=== PATIENT | male | born 1935 | race Caucasian/White ===

== ENCOUNTER → 2017-04-06 | Day surgery (SDC) | payer OTHER ==
[~2017-04-06] VITALS: Ht 180.3 cm; Wt 104.0 kg
[2017-04-06] VITALS (10 sets, daily range): BP systolic 120–157; BP diastolic 49–80; PULSE 60–72; TEMP 36.4–36.5; O2SAT 94–96; Ht 180.3 cm; Wt 104.0 kg
[~2017-04-06] MED LIST: ACETAMINOPHEN 500 MG TAB PO PRN; AMIO200T4 PO; ASPI81TA28 PO; CARV25TA2 PO; FINA5TAB PO; GLC500 PO; LPT40 PO; LSN5 PO; PANT40TA PO; TERA5CAP PO
--- NOTE | 2017-04-06 09:43 | Discharge Instructions ---
Discharge Instructions Procedure Procedure Date: Apr 06, 2017. Reason for visit: Lumbar Spinal Stenosis. Discharge Discharge Date: Apr 06, 2017. Discharge Diagnosis: lumbar spinal stenosis Instructions Activity Recommendations: 1 Day-May resume regular activity Return to School/Work: no limitations Recommended Home Diet: Resume Previous Diet Allergies Coded Allergies: Codeine (Verified Allergy, Unknown, rash, 04/06/17) Tyler Vaz Recommendations: Call your doctor if: * Temperature above 101 degrees * Pain not relieved by pain medicine ordered * There is increased drainage or redness from any incision * You have any unanswered questions or concerns. Your Doctors Instructions noted above were prepared by provider Crescencio Sutton. Patient Signature Section: Patient Instructions Signature Page Kade Montalvo Patient (or Guardian) Signature/Date: I have read and understand the instructions given to me by my caregivers. Caregiver/RN/Doctor Signature/Date: The above-named patient and/or guardian has received patient instructions on this date. + Original Patient Signature Page (only) stays with chart. Please make copy for patient.
--- NOTE | 2017-04-06 10:06 | DIAGNOSTIC IMAGING REPORT ---
LUMBAR MYELOGRAM CLINICAL HISTORY: Spinal stenosis COMPARISON STUDY: Conventional radiographic study dated 03/22/2017 FINDINGS: A timeout was performed. The risks the procedure were explained the patient informed consent was obtained. The patient was prepped and draped in sterile fashion. The skin was anesthetized with 1% lidocaine. Under fluoroscopic guidance, a lumbar puncture was performed at the L5-S1 level. 12 cc of Isovue-M 200 was instilled into the thecal sac. There is marked wasting of the myelographic column at the L2-3, 3-4, L4-5, and L5-S1 level. The findings are consistent with multilevel spinal stenosis. The patient was sent to the CT suite for further imaging. IMPRESSION: Moderate to severe multilevel spinal stenosis. Electronically signed by: Crescencio Sutton M.D. 04/06/2017 10:05 AM Dictated Date/Time: 04/06/2017 10:03 AM
--- NOTE | 2017-04-06 10:13 | DIAGNOSTIC IMAGING REPORT ---
CT POST MYELOGRAM OF THE LUMBAR SPINE CT DOSE: 1251.81 mGy.cm CLINICAL HISTORY: Spinal stenosis TECHNIQUE: Following a diagnostic lumbar myelogram, CT scanning was performed. The patient was scanned in a helical fashion in the axial plane. Multiplane are referred imaging was obtained. A dose lowering technique was utilized adhering to the principles of ALARA. COMPARISON STUDY: None. FINDINGS: No abnormalities of the conus are visualized. L1-2 level: There is a calcified central disc osteophyte complex. This effaces the anterior aspect of the thecal sac. There is mild spinal canal narrowing. There is no significant foraminal narrowing L2-3 level: There is advanced disc degeneration. There is a circumferential disc bulge present. There is severe spinal stenosis with near total block of the myelographic column. L3-4 level: There is advanced disc degeneration. There is a circumferential disc bulge present. There is severe spinal stenosis with near total block of the myelographic column L4-5 level: There is advanced disc degeneration. There is a circumferential disc bulge present. There is severe spinal stenosis. L5-S1 level: There is advanced disc degeneration. There is facet joint arthropathy. There is a circumferential disc bulge present. There is severe spinal stenosis. There is partial visualization of a small infrarenal abdominal aortic aneurysm. IMPRESSION: 1. Calcified central disc osteophyte complex at the L1-2 level with effacement of the anterior thecal sac 2. Advanced disc degeneration and circumferential disc bulges with severe spinal stenosis the L2-3, L3-4, L4-5, and L5-S1 levels. 3. Partial visualization of an infrarenal abdominal aortic aneurysm Electronically signed by: Crescencio Sutton M.D. 04/06/2017 10:12 AM Dictated Date/Time: 04/06/2017 10:05 AM
== END | disposition home or self-care (01) ==
LOC: C.ACU 07:15
PROVIDERS: ATTEND Physician Assistant
DX: M48.061 Spinal stenosis, lumbar region without neurogenic claudication (principal)

== ENCOUNTER 2017-06-06 06:52 | Inpatient (IN) | payer OTHER ==
[2017-05-10 08:19] VITALS: BMI 31.0
--- NOTE | 2017-05-10 09:19 | PAT Medication Instructions ---
Service Date May 10, 2017. Current Home Medication List Amiodarone Hcl (Cordarone), 200 MG PO BID Aspirin (Aspirin Ec), 81 MG PO QAM Atorvastatin (Atorvastatin Calcium), 40 MG PO QPM Carvedilol (Coreg), 0.5 TAB PO BID Cholecalciferol (Vitamin D3), 1 CAP PO QAM Finasteride (Proscar), 5 MG PO QPM Lisinopril (Lisinopril), 5 MG PO HS Metformin HCl (Metformin HCl), 500 MG PO BID Naproxen (Aleve), 220 MG PO UD PRN for Pain Terazosin (Hytrin), 4 CAP PO HS Medication Instructions For Your Scheduled Surgery - Ask your surgeon for instructions for: Naproxen (Aleve), 220 MG PO UD PRN for Pain - Hold the following medications 24 hours prior to surgery: Lisinopril (Lisinopril), 5 MG PO HS --DO NOT TAKE THE NIGHT BEFORE SURGERY - Hold the following medications 48 hours prior to surgery: Metformin HCl (Metformin HCl), 500 MG PO BID - Hold the following medications the morning of surgery: Cholecalciferol (Vitamin D3), 1 CAP PO QAM - Take the following medications the morning of surgery with a sip of water: Carvedilol (Coreg), 0.5 TAB PO BID Aspirin (Aspirin Ec), 81 MG PO QAM Amiodarone Hcl (Cordarone), 200 MG PO BID - Take the following medications as scheduled the night before surgery: Terazosin (Hytrin), 4 CAP PO HS Finasteride (Proscar), 5 MG PO QPM Carvedilol (Coreg), 0.5 TAB PO BID Amiodarone Hcl (Cordarone), 200 MG PO BID Atorvastatin (Atorvastatin Calcium), 40 MG PO QPM If you have any questions please call us at [phone] or [phone] or [phone]
[2017-05-10 10:37] LABS: BASO % 0.4 %; BASO ABS # 0.03 K/uL (0-0.2); COMPLETE YES; EOS % 4.4 %; HEMATOCRIT 31.7 % (42-52); IG% 0.4 %; LYMPH % 13.6 %; LYMPH ABS # 1.08 K/uL (1.2-3.4); MEAN CELL VOLUME 96.1 fL (80-100); MEAN CORPUSCULAR HEMOGLOBIN 29.1 pg (25-34); MEAN CORPUSCULAR HGB CONC 30.3 g/dl (32-36); MEAN PLATELET VOLUME 10.4 fL (7.4-10.4); MONO % 13.7 %; NEUT % 67.5 %; PLATELET COUNT 220 K/uL (130-400); WHITE BLOOD COUNT 7.97 K/uL (4.8-10.8)
[2017-05-10 10:38] LABS: URINE APPEARANCE CLEAR (CLEAR); URINE BILIRUBIN NEG (NEG); URINE COLOR YELLOW; URINE NITRITE NEG (NEG); URINE PH 8.5 (4.5-7.5); URINE SPECIFIC GRAVITY 1.021 (1.000-1.030); UROBILINOGEN NEG (NEG); ZZUR CULT IF INDIC CLEAN CATCH NO
[2017-05-10 10:42] LABS: MANUAL MICROSCOPIC REQUIRED? NO; REVIEW REQ? NO
[2017-05-10 10:44] LABS: BUN/CREATININE RATIO 23.1 (10-20); CALCIUM 8.7 mg/dl (8.5-10.1); CREATININE 1.03 mg/dl (0.60-1.40); POTASSIUM 4.8 mmol/L (3.5-5.1)
[2017-06-06] VITALS (13 sets, daily range): BP systolic 93–148; BP diastolic 59–82; PULSE 60–65; TEMP 34.2–36.5; O2SAT 90–100; Ht 180.3 cm; Wt 99.0 kg
[~2017-06-06] VITALS: Ht 180.3 cm; Wt 99.0 kg
[~2017-06-06 06:52] MED LIST changes: -ACETAMINOPHEN 500 MG TAB PO PRN; +CEFAZOLIN 2000MG IV PUSH 10 ML IV SCH; +CHOL2000 PO; +LACTATED RINGER'S 1000ML 1,000 ML IV SCH; +NAPR1TAB9 PO; -PANT40TA PO
[2017-06-06] MEDS ORDERED: EpHEDrine SULFATE INJ 50 MG/ML AMP IV PRN (07:30)
[2017-06-06] MEDS ORDERED: ATROPINE SULFATE 0.1 MG/ML 5ML SYR IV PRN (07:30)
[2017-06-06] MEDS ORDERED: FENTANYL CITRATE INJ 50 MCG/1 ML 2 ML VIAL IV PRN (07:30)
[2017-06-06] MEDS ORDERED: ONDANSETRON INJ 2 MG/ML 2 ML VIAL IV PRN (07:30)
[2017-06-06] MEDS ORDERED: potassium PO (07:54)
--- NOTE | 2017-06-06 08:13 | History & Physical Bridge Note ---
H&P Re-Evaluation Bridge Note: I have examined the patient, reviewed the History & Physical and in the interval since the performance of the History & Physical I have noted the following changes of clinical significance: No changes noted
--- NOTE | 2017-06-06 08:14 | History and Physical ---
History & Physical Date Jun 06, 2017. Chief Complaint Back and bilateral leg pain History of Present Illness The patient is a 81 year old male with complaints of back and bilateral leg pain with weakness Additional History Hepatic Disease: No Endocrine Disorder: No Kidney Disease: No Hypertension: Yes Heart Disease: No Bleeding Tendencies: No Infectious Diseases: No Allergies Coded Allergies: Amoxicillin (Unverified Allergy, Unknown, diarrhea, 06/06/17) Captopril (Unverified Allergy, Unknown, possibly implicated in his pancreatitis, 06/06/17) Codeine (Verified Allergy, Unknown, rash, 06/06/17) Sulfa Antibiotics (Verified Allergy, Unknown, BLISTER ON FACE, 06/06/17) Verapamil (Unverified Allergy, Unknown, constipation, 06/06/17) Valsartan (Unverified Adverse Reaction, Unknown, lightheadedness, 06/06/17 ) Home Medications Scheduled Amiodarone Hcl (Cordarone), 200 MG PO BID Aspirin (Aspirin Ec), 81 MG PO QAM Atorvastatin (Atorvastatin Calcium), 40 MG PO QPM Carvedilol (Coreg), 0.5 TAB PO BID Cholecalciferol (Vitamin D3), 1 CAP PO QAM Finasteride (Proscar), 5 MG PO QPM Metformin HCl (Metformin HCl), 500 MG PO BID Terazosin (Hytrin), 4 CAP PO HS [potassium ], PO DAILY Scheduled PRN Naproxen (Aleve), 220 MG PO UD PRN for Pain Physical Examination Skin: warm/dry, no rash Eyes: normal inspection, EOMI, sclerae normal ENT: normal ENT inspection, pharynx normal Head: normocephalic, atraumatic Neck: supple, no adenopathy, trachea midline Respiratory/Chest: lungs clear, normal breath sounds, no respiratory distress Cardiovascular: regular rate, rhythm, no edema, no murmur Abdomen / GI: normal bowel sounds, non tender Back: normal inspection Extremities: normal inspection, normal range of motion Neurologic/Psych: no motor/sensory deficits, alert, normal reflexes, oriented x 3 Diagnosis Multilevel lumbar spinal stenosis Plan of Treatment Decompression fusion L2 to S1
[2017-06-06] MEDS ORDERED: FENTANYL CITRATE INJ 50 MCG/1 ML 2 ML VIAL ONE ×5 (08:17→12:30)
[2017-06-06] MEDS ORDERED: ALBUMIN HUMAN 5% 12.5 GM/250 ML VIAL IV ONE (08:40)
[2017-06-06] MEDS ORDERED: BUPIVACAINE/EPINEPHRINE 0.5% MPF 1:200,000 30 ML VIAL ONE (08:44)
[2017-06-06] MEDS ORDERED: BACITRACIN 50000 UNIT VIAL ONE (08:45)
[2017-06-06] MEDS ORDERED: THROMBIN FOR SOLN 20000 UNIT KIT ONE (09:09)
[2017-06-06] MEDS ORDERED: HYDROmorphone INJ 2 MG/ML SYR/VIAL ONE ×3 (09:32→12:58)
[2017-06-06] MEDS ORDERED: LIDOCAINE HCL 2% 2 ML VIAL (20MG/ML) ONE (12:20)
[2017-06-06] MEDS ORDERED: DEXAMETHASONE SOD INJ 4 MG/ML VIAL ONE (12:20)
[2017-06-06] MEDS ORDERED: ROCURONIUM BROMIDE 10 MG/ML 5 ML VIAL IV ONE (12:20)
[2017-06-06] MEDS ORDERED: PROPOFOL IV EMULSION 10 MG/ML 20 ML VIAL IV ONE (12:20)
[2017-06-06 12:22] LABS: HEMATOCRIT 30.8 % (42-52)
[2017-06-06] MEDS ORDERED: FLOSEAL HEMOSTATIC MATRIX 10ML TOP ONE (12:46)
[2017-06-06] MEDS ORDERED: SODIUM CHLORIDE 0.9% 1000ML 1,000 ML IV SCH (12:47)
--- NOTE | 2017-06-06 12:55 | [facility] Operative Report ---
Operative Report Operative Date Jun 06, 2017. Pre-Operative Diagnosis Multilevel Lumbar Spinal Stenosis Post-Operative Diagnosis Multilevel Lumbar Spinal Stenosis Procedure(s) Performed #1 lumbar decompression medial facetectomy foraminotomies L2 3 L3 4 L4 5 L5-S1. #2 posterior spinal fusion L2 3 L3 4 L4 5 L5-S1. #3 bilateral SI joint fusions. #4 placement of posterior segmental instrumentation L2 to S1 with bilateral iliac bolts. #5 interbody fusion L5-S1. #6 placement of peek cage 12 x 26 mm L5-S1. #7 placement of locally harvested morcellized autograft in the posterior lateral gutters. #8 placement infuse collagen sponge combined with Master graft in the posterior lateral gutters and ostial amp in the interbody space. Surgeon Dr. Bird Mathematical Technician Surgeon(s) Maria De Jesus Mcintyre PA-C Estimated Blood Loss 650 cc Findings Severe spinal stenosis Specimens none per surgeon Description of Procedure Patient was met with preoperatively case discussed all questions addressed. After informed consent obtained patient was taken to the operative suite underwent intubation placed in a prone position on the Matt table on top Reagan frame. All bony prominences were well-padded eyes inspected to ensure no external pressure placed upon them. This point the lumbar spines prepped and draped in sterile fashion. Sharp dissection with the assistance of Bovie cautery was performed onto an exposing the lamina and transverse processes of L2 -L3 L4-L5 sacral Dominique and bilateral SI joints. From a caudal to cephalad fashion complete laminectomy of L5 L4 L3 and L2 was performed addressing severe central lateral recess and foraminal stenosis. After this was complete pedicle screws were placed in L2 L3 L4 L5-S1 levels as well as bilateral iliac bolts. Purposes court was then contoured and placed. Through a transforaminal port and right a complete discectomy of L5-S1 was performed and plate created to subcortical bleeding bone and a 12 x 26 mm peek cage filled with ostial amp bone graft tapped in position. The rods were then locked and final position bilaterally. Cross-link was placed. Transverse processes of L2-L3 L4-L5 the sacral alar in the bilateral SI joints were burred to subcortical bleeding bone. Infuse collagen sponge mask graft locally harvested morcellized autograft was placed 15 round ABRAHAN drain inserted. Incision was then closed with 1 Vicryl fascia 2-0 Vicryl subcutaneous tediously 4 Monocryl for final skin closure Steri-Strips sterile dressings placed patient we can take PACU stable condition. Please note Maria De Jesus Payne was present at the entire procedure involved in patient positioning complex portions of the surgery and final skin closure. I attest to the content of the Intraoperative Record and any orders documented therein. Any exceptions are noted below.
--- NOTE | 2017-06-06 12:56 | DIAGNOSTIC IMAGING REPORT ---
INTRAOPERATIVE RADIOGRAPHS CLINICAL HISTORY: L2-S1 spinal fusion. Fluoroscopy time: 41 seconds. FINDINGS: 4 spot fluoroscopic views of the lumbar spine are presented. There has been discectomy at L5-S1. There are changes from laminectomy and posterior fusion from L2 to S1. Interpedicular screws are present at all levels. The orthopedic hardware appears intact. Iliac bolts are in place. IMPRESSION: Intraoperative images from L2 -S1 spinal fusion as above. Electronically signed by: Dane Marin M.D. 06/06/2017 12:54 PM Dictated Date/Time: 06/06/2017 12:53 PM
[2017-06-06] MEDS ORDERED: HYDROmorphone HCL 0.5MG/ML 50 ML CASSETTE IV PRN (13:00)
[2017-06-06] MEDS ORDERED: DC PCA PRN (13:00)
[2017-06-06] MEDS ORDERED: MAGNESIUM HYDROXIDE SUSP 30 ML UDC PO PRN (13:00)
[2017-06-06] MEDS ORDERED: BISACODYL 10 MG SUPP PR PRN (13:00)
[2017-06-06] MEDS ORDERED: ACETAMINOPHEN 500 MG TAB PO PRN (13:00)
[2017-06-06] MEDS ORDERED: DO NOT ADMINISTER PNEUMOCOCCAL VACCINE PRN ×2 (13:00)
[2017-06-06] MEDS ORDERED: LORAZEPAM 0.5 MG TAB PO PRN (13:00)
[2017-06-06] MEDS ORDERED: PROMETHAZINE HCL INJ 12.5 MG in SODIUM CHLORIDE 0.9% 50ML 50 ML IV PRN (13:00)
[2017-06-06] MEDS ORDERED: ALUMINUM/MAGNESIUM SUSP 30 ML UDC PO PRN (13:00)
[2017-06-06] MEDS ORDERED: LORAZEPAM INJ 0.5 MG in SYRINGE 0 ML IV PRN (13:00)
[2017-06-06] MEDS ORDERED: METOCLOPRAMIDE HCL INJ 5 MG/ML 2 ML VIAL IV PRN (13:00)
[2017-06-06] MEDS ORDERED: NALOXONE HCL 0.4 MG/1 ML VIAL/CARP IV PRN ×2 (13:00)
[2017-06-06] MEDS ORDERED: DO NOT ADMINISTER FLU VACCINE PRN ×3 (13:00)
[2017-06-06] MEDS ORDERED: hydrOXYzine HCL 25 MG TAB PO PRN (13:00)
[2017-06-06] MEDS ORDERED: SOD PHOSPHATE/SOD BIPHOSPHATE ENEMA 132 ML BTL PR PRN (13:00)
[2017-06-06] MEDS ORDERED: FAMOTIDINE 20 MG TAB PO PRN (13:00)
[2017-06-06] MEDS ORDERED: HYDROmorphone HCL 0.5MG/ML 50 ML CASSETTE ONE (13:25)
[2017-06-06] MEDS ORDERED: ONDANSETRON INJ 2 MG/ML 2 ML VIAL ONE ×2 (13:52→13:53)
[2017-06-06] MEDS ORDERED: CEFAZOLIN SOD 1 GM VIAL ONE (13:53)
[2017-06-06] MEDS ORDERED: EpHEDrine SULFATE 50MG/5ML SYR ONE (13:53)
[2017-06-06] MEDS ORDERED: CALCIUM CHLORIDE 10% 10 ML SYR ONE (13:53)
[2017-06-06] MEDS ORDERED: PHENYLEPHRINE 100MCG/ML 5ML SYR ONE (13:53)
[2017-06-06] MEDS ORDERED: GLYCOPYRROLATE INJ 0.2 MG/ML VIAL ONE (13:53)
[2017-06-06] MEDS ORDERED: NEOSTIGMINE METHYLSULFATE 1 MG/ML 10ML VIAL ONE (13:53)
--- NOTE | 2017-06-06 14:16 | Anesthesiology Progress Note ---
Anesthesia Post Op Note Date & Time Jun 06, 2017 at 14:16 Vital Signs Pain Intensity: 0 Vital Signs Past 12 Hours Date Time Temp Pulse Resp B/P (MAP) Pulse Ox O2 Delivery O2 Flow Rate FiO2 06/06/17 14:05 61 12 118/67 98 Nasal Cannula 4 06/06/17 13:55 36.2 60 12 122/62 99 Nasal Cannula 4 06/06/17 13:45 60 14 128/66 98 Nasal Cannula 4 06/06/17 13:35 60 13 120/66 94 Oxymask 10 06/06/17 13:25 64 14 114/69 98 Oxymask 10 06/06/17 13:17 36.7 65 12 113/60 97 Oxymask 10 06/06/17 07:55 36.5 62 18 135/70 (91) 97 Room Air Notes Mental Status: alert / awake / arousable, participated in evaluation Pt Amnestic to Procedure: Yes Nausea / Vomiting: adequately controlled Pain: adequately controlled Airway Patency, RR, SpO2: stable & adequate BP & HR: stable & adequate Hydration State: stable & adequate Anesthetic Complications: no major complications apparent
[2017-06-06] MEDS ORDERED: ZRX5 PO (15:44)
[2017-06-06] MEDS ORDERED: FURO20TA PO (15:44)
[2017-06-06] MEDS ORDERED: POTA1CAP2 PO (15:44)
[2017-06-06] MEDS ORDERED: GLUCAGON FOR INJ 1 MG VIAL SQ PRN (15:45)
[2017-06-06] MEDS ORDERED: DEXTROSE 50% 50 ML SYR IV PRN (15:45)
[2017-06-06] MEDS ORDERED: GLUCOSE 10 TABS/TUBE PO PRN (15:45)
[2017-06-06] MEDS ORDERED: GLUCOSE 40% GEL 15 GM TUBE PO PRN (15:45)
[2017-06-06] MEDS: SODIUM CHLORIDE 0.9% 1000ML 1,000 ML IV SCH ×2 (15:46→21:59)
--- NOTE | 2017-06-06 16:12 | Medical Consult ---
Consultation Date of Consultation: Jun 06, 2017. Attending Physician: Skinny Bird D.O. Reason for Consultation: Post Op Medical Management History of Present Illness 81 year old male who is s/p L2-S1 decompression today by Dr. Bird. Post operatively the patient is doing well. He is somewhat groggy but can answer my questions appropriately. He reports his pain is well controlled. He denies numbness or tingling to the BLLE. He reports mild nausea, denies abdominal pain or vomiting. He has some mild dizziness, denies lightheadedness and syncopal events. No chest pain, palpitations or shortness of breath. Martin is in place draining clear yellow urine. Past Medical/Surgical History Medical Problems: (1) BPH (benign prostatic hyperplasia) Status: Chronic (2) DM (diabetes mellitus) Status: Chronic (3) HLD (hyperlipidemia) Status: Chronic (4) HTN (hypertension) Status: Chronic (5) Nonischemic cardiomyopathy Permanent Comment: echo 01/2015 - EF 40-45%, grade I diastolic dysfunction Status: Chronic (6) Presence of combination internal cardiac defibrillator (ICD) and pacemaker Status: Chronic (7) V tach Status: Chronic Surgical Problems: (1) History of left hip replacement Status: Chronic (2) Hx of cholecystectomy Status: Chronic (3) S/P cardiac cath Permanent Comment: 08/2016 - mild, non obstructive disease Status: Chronic Family History non contributory due to patient's advanced age Social History Smoking Status: Never Smoker Alcohol Use: none Allergies Coded Allergies: Captopril (Verified Allergy, Intermediate, possibly implicated in his pancreatitis, 06/06/17) Codeine (Verified Allergy, Intermediate, rash, 06/06/17) Sulfa Antibiotics (Verified Allergy, Intermediate, BLISTER ON FACE, ) Amoxicillin (Verified Adverse Reaction, Mild, diarrhea, 06/06/17) Valsartan (Verified Adverse Reaction, Mild, lightheadedness, 06/06/17) Verapamil (Unverified Adverse Reaction, Mild, constipation, 06/06/17) Home Medications Potassium Chloride Er (Potassium Chloride) 10 Meq Cap 1 Cap PO DAILY 90 Days Lasix (Furosemide) 20 Mg Tab 20 Mg PO BID Vitamin D3 (Cholecalciferol) 2,000 Unit Cap 1 Cap PO QAM 90 Days Aleve (Naproxen) 220 Mg Tab 220 Mg PO UD PRN Cordarone (Amiodarone Hcl) 200 Mg Tab 200 Mg PO BID Proscar (Finasteride) 5 Mg Tab 5 Mg PO QPM Hytrin (Terazosin HCl) 5 Mg Cap 4 Cap PO HS Metformin HCl 500 Mg Tab 500 Mg PO BID Coreg (Carvedilol) 25 Mg Tab 0.5 Tab PO BID Atorvastatin Calcium (Atorvastatin) 40 Mg Tab 40 Mg PO QPM Aspirin Ec (Aspirin) 81 Mg Tab 81 Mg PO QAM Current Inpatient Medications Current Inpatient Medications Medications (Trade) Dose Ordered Sig/Heydi Route Start Time Stop Time Status Last Admin Dose Admin Lactated Ringer's 1,000 ml @ 15 mls/hr Q24H IV 06/06/17 06:00 06/07/17 05:59 06/06/17 06:00 15 MLS/HR Cefazolin Sodium 10 ml @ 2.5 mls/min PREOP IV 06/06/17 06:00 06/06/17 18:00 06/06/17 09:02 2.5 MLS/MIN Clindamycin Phosphate 600 mg/ Dextrose 54 ml @ 100 mls/hr Q8H IV 06/06/17 17:00 06/07/17 01:33 Promethazine HCl 12.5 mg/Sodium Chloride 50.5 ml @ 202 mls/hr Q6H PRN IV 06/06/17 13:00 07/06/17 12:59 Ondansetron HCl (Zofran Inj) 4 mg Q6H PRN IV 06/06/17 13:00 07/06/17 12:59 Metoclopramide HCl (Reglan Inj) 10 mg Q6H PRN IV 06/06/17 13:00 07/06/17 12:59 Lorazepam (Ativan Tab) 0.5 mg Q8H PRN PO 06/06/17 13:00 07/06/17 12:59 Lorazepam 0.5 mg/ Syringe 0.25 ml @ 1 mls/min Q8H PRN IV 06/06/17 13:00 07/06/17 12:59 Pneumococcal Polysaccharide Vaccine 1 ea PRN PRN N/A 06/06/17 13:00 07/06/17 12:59 Influenza Virus Vacc Triv Types A&B 1 ea PRN PRN N/A 06/06/17 13:00 07/06/17 12:59 Polyethylene (Miralax Powder Packet) 17 gm Q6 PO 06/08/17 06:00 07/08/17 05:59 Bisacodyl (Dulcolax Supp) 10 mg DAILY PRN NC 06/06/17 13:00 07/06/17 12:59 Magnesium Hydroxide (Milk Of Magnesia Susp) 30 ml DAILY PRN PO 06/06/17 13:00 07/06/17 12:59 Hydromorphone HCl (Dilaudid Inj) 0.5-1mg prn moder... Q3H PRN IV 06/07/17 06:00 06/21/17 05:59 Oxycodone HCl (Roxicodone Immediate Rel Tab) 5-10mg prn moderate to sev... Q4H PRN PO 06/07/17 06:00 06/21/17 05:59 Sodium Chloride 1,000 ml @ 150 mls/hr Q6H40M IV 06/06/17 12:47 07/06/17 12:46 06/06/17 15:46 150 MLS/HR Acetaminophen (Tylenol Tab) 1,000 mg Q8H PRN PO 06/06/17 13:00 07/06/17 12:59 Acetaminophen 100 ml @ 400 mls/hr Q8H PRN IV 06/06/17 13:00 07/06/17 12:59 Naloxone HCl (Narcan Inj) 0.1 mg Q5M PRN IV 06/06/17 13:00 07/06/17 12:59 Senna/Docusate Sodium (Senokot S Tab) 2 tab HS PO 06/06/17 21:00 07/06/17 20:59 Sodium Biphosphate/ Sodium Phosphate (Fleet Enema) 132 ml ONE PRN NC 06/06/17 13:00 07/06/17 12:59 Hydroxyzine HCl (Vistaril Tab) 25 mg Q8H PRN PO 06/06/17 13:00 07/06/17 12:59 Al Hydroxide/Mg Hydroxide (Maalox Susp) 30 ml Q6H PRN PO 06/06/17 13:00 07/06/17 12:59 Famotidine (Pepcid Tab) 20 mg Q12 PRN PO 06/06/17 13:00 07/06/17 12:59 Diphenhydramine HCl (Benadryl Cap) 25 mg Q6H PRN PO 06/06/17 13:00 07/06/17 12:59 Miscellaneous Information (Discontinue PLATEN PRESS OPERATOR) 1 ea DIRECTED PRN N/A 06/06/17 13:00 06/07/17 06:00 Naloxone HCl (Narcan Inj) 0.1 mg Q5M PRN IV 06/06/17 13:00 06/07/17 06:00 Hydromorphone HCl (Dilaudid Casket Liner) 25 mg PRN PRN IV 06/06/17 13:00 06/07/17 06:00 Sodium Chloride 1,000 ml @ 15 mls/hr Q24H IV 06/06/17 12:47 06/07/17 06:00 Amiodarone HCl (Cordarone Tab) 200 mg BID PO 06/06/17 21:00 07/06/17 20:59 Aspirin (Ecotrin Tab) 81 mg QAM PO 06/07/17 09:00 07/07/17 08:59 Atorvastatin Calcium (Lipitor Tab) 40 mg QPM PO 06/06/17 21:00 07/06/17 20:59 Carvedilol (Coreg Tab) 12.5 mg BID PO 06/06/17 21:00 07/06/17 20:59 Finasteride (Proscar Tab) 5 mg QPM PO 06/06/17 21:00 07/06/17 20:59 Terazosin HCl (Hytrin Cap) 20 mg HS PO 06/06/17 21:00 07/06/17 20:59 Insulin Aspart (novoLOG ASPART) SLIDING SCALE If C... ACHS SC 06/06/17 17:15 07/06/17 17:14 UNV Glucose (Glucose 40% Gel) 15-30 GRAMS 15 GRAMS... UD PRN PO 06/06/17 15:45 07/06/17 15:44 UNV Glucose (Glucose Chew Tab) 4-8 Tablets 4 Tabl... UD PRN PO 06/06/17 15:45 07/06/17 15:44 UNV Dextrose (Dextrose 50% 50ML Syringe) 25-50ML OF 50% DW IV FOR... UD PRN IV 06/06/17 15:45 07/06/17 15:44 UNV Glucagon (Glucagon Inj) 1 mg UD PRN SQ 06/06/17 15:45 07/06/17 15:44 UNV Review of Systems ROS per HPI, all other systems reviewed and negative Physical Exam Date Time Temp Pulse Resp B/P (MAP) Pulse Ox O2 Delivery O2 Flow Rate FiO2 06/06/17 15:38 34.7 60 16 128/79 (95) 97 Nasal Cannula 3.5 06/06/17 15:09 60 18 119/72 (88) 93 Nasal Cannula 3.5 06/06/17 14:30 36.4 62 16 148/74 (98) 98 Nasal Cannula 4.0 06/06/17 14:30 98 Nasal Cannula 4.0 06/06/17 14:15 60 13 123/65 98 Nasal Cannula 4 06/06/17 14:05 61 12 118/67 98 Nasal Cannula 4 06/06/17 13:55 36.2 60 12 122/62 99 Nasal Cannula 4 06/06/17 13:45 60 14 128/66 98 Nasal Cannula 4 06/06/17 13:35 60 13 120/66 94 Oxymask 10 06/06/17 13:25 64 14 114/69 98 Oxymask 10 06/06/17 13:17 36.7 65 12 113/60 97 Oxymask 10 06/06/17 07:55 36.5 62 18 135/70 (91) 97 Room Air Head: normocephalic, atraumatic Eyes: normal inspection, EOMI, sclerae normal ENT: hearing grossly normal, + pertinent finding (mucous membranes moist) Neck: supple, no JVD, trachea midline Respiratory/Chest: no respiratory distress, + decreased breath sounds Cardiovascular: regular rate, rhythm, normal peripheral pulses, + pertinent finding (+1 edema BLLE) Abdomen/GI: normal bowel sounds, non tender, soft, no organomegaly Back: + pertinent finding (s/p back surgery, drain in place draining bloody drainage, pedal pushes and pulls strong BL) Extremities/Musculoskelatal: normal inspection, no calf tenderness, normal capillary refill Neurologic/Psych: no motor/sensory deficits, normal mood/affect, oriented x 3, + pertinent finding (mildly lethargic, arouses easily to verbal stimuli) Skin: normal color, warm/dry Laboratory Results Last 24 Hours Test 06/06/17 07:24 06/06/17 12:12 06/06/17 14:00 Bedside Glucose 97 mg/dl 138 mg/dl Hemoglobin 10.1 g/dL Hematocrit 30.8 % Assessment & Plan S/P L2-S1 DECOMPRESSION - POD#0 - activity and wound care orders as per ortho - pain control with bowel regimen - PT/OT - monitor H/H for acute blood loss anemia and transfuse blood products PRN NON ISCHEMIC CARDIOMYOPATHY - EF 40-55% on echo 01/2015 - appears euvolemic - would resume diuretics in the morning pending renal functions - continue beta nazia V-TACH S/P AICD/PACER - continue Amiodarone DM - will check hgb a1c - hold metformin and utilize SSI while hospitalized HTN - BP controlled, continue carvedilol HLD - continue statin BPH - continue terazosin and finasteride DVT PROPHYLAXIS - TEDs/SCDs per ortho Thank you for this consultation. We will follow the patient with you during their hospital stay. You can reach a member of the [facility] Hospitalist Team 15/01 via pager @ . 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 of V-tach s/p pacer/defibrillator on amiodarone, DM2 presents for a scheduled lumbar decompression/fusion. Doing well post-operatively. Pain controlled as of now. Denies chest pain/shortness of breath. Plan is to monitor labs (H/H, electrolytes) pain control as per ortho continue amio and b-nazia restart Lasix + Aldactone in AM monitor for fluid overload due to CHF insulin sliding scale
[2017-06-06] MEDS: CLINDAMYCIN IV 600 MG in DEXTROSE 5% 50ML 50 ML IV SCH (16:38)
[2017-06-06] MEDS: INSULIN ASPART 100 UNITS/ML 3 ML PEN SC SCH ×2 (18:38→21:04)
[2017-06-06] MEDS: DOCUSATE SODIUM/SENNA 50/8.6MG TAB PO SCH (20:17)
[2017-06-06] MEDS: FINASTERIDE 5 MG TAB PO SCH (20:18)
[2017-06-06] MEDS: ATORVASTATIN 40 MG TAB PO SCH (20:18)
[2017-06-06] MEDS: CARVEDILOL 12.5 MG TAB PO SCH (20:19)
[2017-06-06] MEDS: AMIODARONE 200 MG TAB PO SCH (20:44)
[2017-06-06 22:24] LABS: BUN/CREATININE RATIO 25.2 (10-20); CALCIUM 8.3 mg/dl (8.5-10.1); CREATININE 1.27 mg/dl (0.60-1.40); MAGNESIUM 1.8 mg/dl (1.8-2.4); POTASSIUM 4.3 mmol/L (3.5-5.1)
[2017-06-06 22:35] LABS: THYROID STIMULATING HORMONE 1.81 uIu/ml (0.300-4.500)
[2017-06-06 22:37] LABS: HEMATOCRIT 27.8 % (42-52)
[2017-06-07] VITALS (17 sets, daily range): BP systolic 80–125; BP diastolic 44–75; PULSE 60–62; TEMP 36.3–36.7; O2SAT 89–100
[2017-06-07] MEDS: CLINDAMYCIN IV 600 MG in DEXTROSE 5% 50ML 50 ML IV SCH (00:54)
[2017-06-07] MEDS: SODIUM CHLORIDE 0.9% 1000ML 1,000 ML IV SCH ×2 (02:07→20:50)
[2017-06-07] MEDS ORDERED: HYDROmorphone INJ 0.5 MG/0.5 ML SYR IV PRN (06:00)
[2017-06-07 06:16] LABS: BASO % 0.1 %; BASO ABS # 0.01 K/uL (0-0.2); COMPLETE YES; HEMATOCRIT 29.6 % (42-52); IG% 0.5 %; LYMPH % 4.6 %; LYMPH ABS # 0.87 K/uL (1.2-3.4); MEAN CELL VOLUME 92.8 fL (80-100); MEAN CORPUSCULAR HEMOGLOBIN 29.8 pg (25-34); MEAN CORPUSCULAR HGB CONC 32.1 g/dl (32-36); MEAN PLATELET VOLUME 9.5 fL (7.4-10.4); MONO % 9.2 %; NEUT % 85.6 %; PLATELET COUNT 178 K/uL (130-400); RED BLOOD COUNT 3.19 M/uL (4.7-6.1); WHITE BLOOD COUNT 18.95 K/uL (4.8-10.8)
[2017-06-07 06:49] LABS: BUN/CREATININE RATIO 31.5 (10-20); CALCIUM 8.1 mg/dl (8.5-10.1); CREATININE 1.04 mg/dl (0.60-1.40); POTASSIUM 4.4 mmol/L (3.5-5.1)
[2017-06-07 07:26] LABS: ESTIMATED AVERAGE GLUCOSE 111 mg/dl; HA1C FLAG Normal (Normal)
[2017-06-07] MEDS: AMIODARONE 200 MG TAB PO SCH ×2 (08:56→21:26)
[2017-06-07] MEDS: ASPIRIN 81 MG ECTAB PO SCH (08:57)
[2017-06-07] MEDS: CARVEDILOL 12.5 MG TAB PO SCH ×2 (08:57→20:50)
[2017-06-07] MEDS: INSULIN ASPART 100 UNITS/ML 3 ML PEN SC SCH ×4 (09:00→20:37)
--- NOTE | 2017-06-07 09:03 | Progress Note ---
Progress Note Date of Service Jun 07, 2017. Progress Note Patient's back pain is controlled. He denies any leg pain at this time. Vital signs are stable. On exam he is sitting up in bed appears comfortable. His good strength testing lower extremities. Assessment status post multilevel lumbar decompression fusion per plan this time we'll initiate physical therapy today. Continue to monitor her is ABRAHAN output and hemoglobin. Again we are trying to have him discharged to rehabilitation this weekend.
[2017-06-07] MEDS ORDERED: RXC5 PO (09:08)
--- NOTE | 2017-06-07 09:08 | Discharge Instructions ---
Discharge Instructions Date of Service Jun 07, 2017. Admission Reason for Admission: Lumbar Spinal Stenosis Discharge Discharge Diagnosis / Problem: lumbar spinal stenosis Discharge Goals Goal(s): Improve function Activity Recommendations Activity Limitations: per Instructions/Follow-up section . Instructions / Follow-Up Instructions / Follow-Up ACTIVITY RECOMMENDATIONS: SELF CARE INSTRUCTIONS AFTER THORACIC/LUMBAR FUSIONS 1. You may walk to your tolerance. It is good exercise for your legs and back. Expect some back and intermittent leg aches and pains. 2. You may perform "counter-top" level activities (make a sandwich, deo with a project, etc.). 3. No bending or lifting of more than 10 pounds or back twisting of any nature (roll like a log when turning in bed). 4. You may ride in a car for 20-30 minutes at a time. No driving until after your first visit with your doctor. 5. Frequent changes of position and restricting sitting to 30 minutes at a time will help limit the amount of back spasms and stiffness you may experience. 6. You may discontinue the use of ambulatory aids (cane, crutches, etc.) once your strength and confidence allow. 7. You may processing talc and borate supervisor the shower and let water strike your incision when you arrive home at least once daily. Do not take a tub bath, sit in a hot tub or go into a swimming pool until after your first recheck in the office. SPECIAL CARE INSTRUCTIONS: VERY IMPORTANT TO READ AND REVIEW A. Your surgical incision has been closed with a cosmetic suture under the skin that will dissolve in about 6 weeks. In 14 days, you can use a pair of clean scissors and cut the suture that is left outside of the skin at the ends of your incision. 1. The small skin tapes can be removed 7 days after surgery if they have not fallen off by that point. 2. You may keep the wound open to air as much as possible to promote healing after post-op day number 5 unless told otherwise by your doctor. 3. If you think the wound looks like it is becoming infected (redness or worsening drainage) and/or you are experiencing fever, chill or worsening back pain and muscle spasms, contact the office so that we may evaluate you as soon as possible. B. Complications are uncommon, but please contact us if you have any signs or symptoms of: 1. wound infection (fever higher than 102.5 degrees F, redness, separation of wound, drainage, or increasing pain from the incision) 2. blood clots in legs (pain, swelling, redness and warmth in legs) 3. urinary tract infection (fever higher than 102.5 degrees F, burning upon urination or increased frequency of urination) 4. nerve problems (inability to walk on your toes or heels, numbness, loss of bowel or bladder control) 5. any other symptoms that concern you C. Please call the office at if you have any concerns or questions about your operation or recovery. D. No smoking! Smoking drastically decreases the chance of a solid fusion. E. Do not take any anti-inflammatory medications (Indocin, Advil, Motrin, Aspirin, Naprosyn, etc.) as these may inhibit the chance of a solid fusion. Tylenol is okay to take for pain. MANAGING PAIN AFTER SPINAL SURGERY 1. Narcotic medication is intended for short-term use and will be provided for surgical pain. Surgical pain usually lasts for a period of 4-6 weeks. Narcotic medication includes Percocet, Vicodin, Darvocet, Tylenol #3 or Lortab. 2. Longer-term pain is more appropriately treated with non-narcotic medication such as Tylenol ES. 3. Muscle spasm is not appropriately treated with narcotics. Muscle relaxers such as Soma, Flexeril or Skelaxin can be used along with Tylenol ES. 4. Remember that we all live with some "aches and pains". This is not unusual or uncommon after an injury or as we get older. a. Back pain is expected and may include muscle spasms for 4 to 6 weeks after surgery. The pain should gradually improve. If the pain worsens for no apparent reason, please contact the office. b. Intermittent leg pain may also be experienced and should not be concerned about unless it worsens for no apparent reason. If so, please contact the office. 5. We will provide appropriate medication within the normal guidelines of their prescribed use. We will also be very cautious and aware of potential abuse and extended duration of patients' medication needs. a. Pain medications are for your comfort and to assist with sleep and rest so that the tissue can heal. They are not provided in order to return to normal activity and should not be used through the day. To do so or worsening pain at night can result from ongoing tissue damage and development of tolerance to the prescribed medicine. 6. Please allow 2-3 days to process refills. Prescriptions will not be mailed but must be picked up at the office. FOLLOW UP VISIT: Keep your scheduled follow-up appointment. Any questions, please call the office at . Current Hospital Diet Patient's current hospital diet: Diabetes Type 2 Diet Discharge Diet Recommended Diet: Regular Diet Procedures Procedures Performed: #1 lumbar decompression medial facetectomy foraminotomies L2 3 L3 4 L4 5 L5-S1. #2 posterior spinal fusion L2 3 L3 4 L4 5 L5-S1. #3 bilateral SI joint fusions. #4 placement of posterior segmental instrumentation L2 to S1 with bilateral iliac bolts. #5 interbody fusion L5-S1. #6 placement of peek cage 12 x 26 mm L5-S1. #7 placement of locally harvested morcellized autograft in the posterior lateral gutters. #8 placement infuse collagen sponge combined with Master graft in the posterior lateral gutters and ostial amp in the interbody space. Pending Studies Studies pending at discharge: no Laboratory Results Hemoglobin A1c Test 06/07/17 05:54 Range/Units Estimated Average Glucose 111 mg/dl Hemoglobin A1c 5.5 4.5-5.6 % Medical Emergencies . Who to Call and When: Medical Emergencies: If at any time you feel your situation is an emergency, please call 911 immediately. . Non-Emergent Contact Non-Emergency issues call your: Primary Care Provider . "Provider Documentation" section prepared by Skinny Bird. . VTE Core Measure Inpt VTE Proph given/why not?: Yanet Barnett, SHANA's
[2017-06-07] MEDS ORDERED: NURSING VERBAL MED ORDER ONE (11:10)
--- NOTE | 2017-06-07 11:52 | Clinical Documentation Query ---
WILLIAM Rdz : CLINICAL DOCUMENTATION QUERY Patient is an 81 year old male who underwent posterior lumbosacral decompression and interbody fusion on 06/06. Intraoperative hemoglobin and hematocrit of 10.1 g/dl and 30.8%. Transfused 2 units postoperatively as ordered by hospitalist coverage and repeat values this a.m. of 9.5 g/dl and 29.6%. EBL for the procedure was 650 cc with subsequent losses of an additional 865 ml's to date. In your clinical opinion is this patient being managed for: ( ) Acute blood loss anemia ( ) Not Agree ( ) Other explanation of clinical findings (Please Explain) ( ) Unable to determine (Please Define) ( X ) Need to Discuss - repeat H/H done by sensor operator and transfused after my documentation - please send this to appriopriate physician, thank you. The medical record reflects the following clinical findings, treatment, and risk factors. Clinical Indicators: As above Treatment: Transfusion of PRBC's, serial hematology, hospitalist consultation Risk Factors: Please clarify and document your clinical opinion in the progress notes and discharge summary. Terms such as "probable", "suspected", "likely", "questionable", "possible", or "still to be ruled out" are acceptable. IF IN AGREEMENT, YOU MUST DOCUMENT ABOVE DIAGNOSTIC STATEMENT IN DAILY PROGRESS NOTES AND DISCHARGE SUMMARY. This document is not part of the patient's record. Thank You, Allen Ellis, JUDITH [phone]
[2017-06-07] MEDS: OXYCODONE HCL IR 5 MG TAB (IMMEDIATE RELEASE) PO PRN (14:53)
[2017-06-07 19:28] LABS: HEMATOCRIT 29.7 % (42-52)
--- NOTE | 2017-06-07 21:12 | Progress Note ---
Medicine Progress Note Date & Time of Visit: Jun 07, 2017 at 1200. Subjective -doing well, reports his pain is controlled -limited ambulation at this time -tolerating PO Objective Last 8 Hrs Date Time Temp Pulse Resp B/P (MAP) Pulse Ox O2 Delivery O2 Flow Rate FiO2 06/07/17 15:22 103/58 (73) 06/07/17 15:14 36.5 60 16 90/52 (65) 92 Room Air 06/07/17 11:08 36.6 60 16 108/61 (77) 97 4.0 Physical Exam: GEN: obese, in no acute distress, alert and appropriate HEENT: NC/AT, normal sclerae, MMM CARDIO: reg rate, S1/2 heard without m/g/r LUNGS: CTA bilaterally, no crackles, rales or wheezes, good diaphragmatic excursion BACK: bandage in place over wound-c/d/i ABD: soft, non-tender, non-distended, no rebound or guarding, +BS EXTREMITY: RP and DP palpable 2+ bilat, no LE swelling or edema, extremities are warm and well-perfused NEURO: CN 2-12 grossly intact, sensation intact throughout MUSC: 5/5 strength throughout, no focal deficits SKIN: warm and dry Laboratory Results: 06/07/17 05:54 Red Blood Count 3.19, Mean Corpuscular Volume 92.8, Mean Corpuscular Hemoglobin 29.8, Mean Corpuscular Hemoglobin Concent 32.1, Mean Platelet Volume 9.5, Neutrophils (%) (Auto) 85.6, Lymphocytes (%) (Auto) 4.6, Monocytes (%) (Auto) 9.2, Eosinophils (%) (Auto) 0.0, Basophils (%) (Auto) 0.1, Neutrophils # (Auto) 16.24, Lymphocytes # (Auto) 0.87, Monocytes # (Auto) 1.74, Eosinophils # (Auto) 0.00, Basophils # (Auto) 0.01 06/07/17 19:18 06/07/17 05:54 Test 05/10/17 09:35 06/06/17 21:49 06/07/17 05:54 06/07/17 20:27 Urine Color YELLOW Urine Appearance CLEAR (CLEAR) Urine pH 8.5 (4.5-7.5) Urine Specific [place] 1.021 (1.000-1.030) Urine Protein NEG (NEG) Urine Glucose (UA) NEG (NEG) Urine Ketones NEG (NEG) Urine Occult Blood NEG (NEG) Urine Nitrite NEG (NEG) Urine Bilirubin NEG (NEG) Urine Urobilinogen NEG (NEG) Urine Leukocyte Esterase NEG (NEG) Magnesium Level 1.8 mg/dl (1.8-2.4) Thyroid Stimulating Hormone (TSH) 1.810 uIu/ml (0.300-4.500) White Blood Count 18.95 K/uL (4.8-10.8) Red Blood Count 3.19 M/uL (4.7-6.1) Hemoglobin 9.5 g/dL (14.0-18.0) Hematocrit 29.6 % (42-52) Mean Corpuscular Volume 92.8 fL (80-100) Mean Corpuscular Hemoglobin 29.8 pg (25-34) Mean Corpuscular Hemoglobin Concent 32.1 g/dl (32-36) Platelet Count 178 K/uL (130-400) Mean Platelet Volume 9.5 fL (7.4-10.4) Neutrophils (%) (Auto) 85.6 % Lymphocytes (%) (Auto) 4.6 % Monocytes (%) (Auto) 9.2 % Eosinophils (%) (Auto) 0.0 % Basophils (%) (Auto) 0.1 % Neutrophils # (Auto) 16.24 K/uL (1.4-6.5) Lymphocytes # (Auto) 0.87 K/uL (1.2-3.4) Monocytes # (Auto) 1.74 K/uL (0.11-0.59) Eosinophils # (Auto) 0.00 K/uL (0-0.5) Basophils # (Auto) 0.01 K/uL (0-0.2) RDW Standard Deviation 51.2 fL (36.4-46.3) RDW Coefficient of Variation 14.8 % (11.5-14.5) Immature Granulocyte % (Auto) 0.5 % Immature Granulocyte # (Auto) 0.09 K/uL (0.00-0.02) Anion Gap 5.0 mmol/L (3-11) Est Creatinine Clear Calc Drug Dose 66.8 ml/min Estimated GFR () 77.7 Estimated GFR (Non- 67.0 BUN/Creatinine Ratio 31.5 (10-20) Estimated Average Glucose 111 mg/dl Hemoglobin A1c 5.5 % (4.5-5.6) Calcium Level 8.1 mg/dl (8.5-10.1) Bedside Glucose 103 mg/dl (70-99) Last 24 Hours Test 06/06/17 20:34 06/06/17 21:49 06/07/17 05:54 06/07/17 08:11 Bedside Glucose 170 mg/dl 136 mg/dl Hemoglobin 8.8 g/dL 9.5 g/dL Hematocrit 27.8 % 29.6 % Sodium Level 142 mmol/L 142 mmol/L Potassium Level 4.3 mmol/L 4.4 mmol/L Chloride Level 110 mmol/L 111 mmol/L Carbon Dioxide Level 27 mmol/L 26 mmol/L Anion Gap 5.0 mmol/L 5.0 mmol/L Blood Urea Nitrogen 32 mg/dl 33 mg/dl Creatinine 1.27 mg/dl 1.04 mg/dl Est Creatinine Clear Calc Drug Dose 54.7 ml/min 66.8 ml/min Estimated GFR () 61.0 77.7 Estimated GFR (Non- 52.6 67.0 BUN/Creatinine Ratio 25.2 31.5 Random Glucose 171 mg/dl 141 mg/dl Calcium Level 8.3 mg/dl 8.1 mg/dl Magnesium Level 1.8 mg/dl Thyroid Stimulating Hormone (TSH) 1.810 uIu/ml White Blood Count 18.95 K/uL Red Blood Count 3.19 M/uL Mean Corpuscular Volume 92.8 fL Mean Corpuscular Hemoglobin 29.8 pg Mean Corpuscular Hemoglobin Concent 32.1 g/dl Platelet Count 178 K/uL Mean Platelet Volume 9.5 fL Neutrophils (%) (Auto) 85.6 % Lymphocytes (%) (Auto) 4.6 % Monocytes (%) (Auto) 9.2 % Eosinophils (%) (Auto) 0.0 % Basophils (%) (Auto) 0.1 % Neutrophils # (Auto) 16.24 K/uL Lymphocytes # (Auto) 0.87 K/uL Monocytes # (Auto) 1.74 K/uL Eosinophils # (Auto) 0.00 K/uL Basophils # (Auto) 0.01 K/uL RDW Standard Deviation 51.2 fL RDW Coefficient of Variation 14.8 % Immature Granulocyte % (Auto) 0.5 % Immature Granulocyte # (Auto) 0.09 K/uL Estimated Average Glucose 111 mg/dl Hemoglobin A1c 5.5 % Test 06/07/17 11:57 06/07/17 16:56 Bedside Glucose 131 mg/dl 107 mg/dl Assessment & Plan S/P L2-S1 DECOMPRESSION - POD#1 and doing well - activity and wound care orders as per ortho - pain control with bowel regimen - PT/OT - monitor H/H for acute blood loss anemia and transfuse blood products PRN NON ISCHEMIC CARDIOMYOPATHY -euvolemic, cont BB, Lasix restarted for am. Some hypotension noted mid-day but this improved by evening. V-TACH S/P AICD/PACER - continue Amiodarone DM A1C 5.5 on metformin as outpatient, well below goal for his age. Inpatient glucose slightly elevated likely related to steroid use hailey-operatively. Would consider stopping metformin on discharge with close PCP follow-up based on this A1C value as hypoglycemia is dangerous in this age group. HTN - BP controlled, continue carvedilol HLD - continue statin BPH - continue terazosin and finasteride DVT PROPHYLAXIS - TEDs/SCDs per ortho Thank you for this consultation. We will follow the patient with you during their hospital stay. You can reach a member of the [facility] Hospitalist Team 15/01 via pager @ [phone]. Carmen Flores DO [facility] Current Inpatient Medications: Current Inpatient Medications Medications (Trade) Dose Ordered Sig/Heydi Route Start Time Stop Time Status Last Admin Dose Admin Promethazine HCl 12.5 mg/Sodium Chloride 50.5 ml @ 202 mls/hr Q6H PRN IV 06/06/17 13:00 07/06/17 12:59 Ondansetron HCl (Zofran Inj) 4 mg Q6H PRN IV 06/06/17 13:00 07/06/17 12:59 Metoclopramide HCl (Reglan Inj) 10 mg Q6H PRN IV 06/06/17 13:00 07/06/17 12:59 Lorazepam (Ativan Tab) 0.5 mg Q8H PRN PO 06/06/17 13:00 07/06/17 12:59 Lorazepam 0.5 mg/ Syringe 0.25 ml @ 1 mls/min Q8H PRN IV 06/06/17 13:00 07/06/17 12:59 Pneumococcal Polysaccharide Vaccine 1 ea PRN PRN N/A 06/06/17 13:00 07/06/17 12:59 Influenza Virus Vacc Triv Types A&B 1 ea PRN PRN N/A 06/06/17 13:00 07/06/17 12:59 Polyethylene (Miralax Powder Packet) 17 gm Q6 PO 06/08/17 06:00 07/08/17 05:59 Bisacodyl (Dulcolax Supp) 10 mg DAILY PRN CA 06/06/17 13:00 07/06/17 12:59 Magnesium Hydroxide (Milk Of Magnesia Susp) 30 ml DAILY PRN PO 06/06/17 13:00 07/06/17 12:59 Hydromorphone HCl (Dilaudid Inj) 0.5-1mg prn moder... Q3H PRN IV 06/07/17 06:00 06/21/17 05:59 Oxycodone HCl (Roxicodone Immediate Rel Tab) 5-10mg prn moderate to sev... Q4H PRN PO 06/07/17 06:00 06/21/17 05:59 06/07/17 14:53 5 MG Acetaminophen (Tylenol Tab) 1,000 mg Q8H PRN PO 06/06/17 13:00 07/06/17 12:59 06/07/17 16:10 1,000 MG Acetaminophen 100 ml @ 400 mls/hr Q8H PRN IV 06/06/17 13:00 07/06/17 12:59 Naloxone HCl (Narcan Inj) 0.1 mg Q5M PRN IV 06/06/17 13:00 07/06/17 12:59 Senna/Docusate Sodium (Senokot S Tab) 2 tab HS PO 06/06/17 21:00 07/06/17 20:59 06/06/17 20:17 2 TAB Sodium Biphosphate/ Sodium Phosphate (Fleet Enema) 132 ml ONE PRN CA 06/06/17 13:00 07/06/17 12:59 Hydroxyzine HCl (Vistaril Tab) 25 mg Q8H PRN PO 06/06/17 13:00 07/06/17 12:59 Al Hydroxide/Mg Hydroxide (Maalox Susp) 30 ml Q6H PRN PO 06/06/17 13:00 07/06/17 12:59 Famotidine (Pepcid Tab) 20 mg Q12 PRN PO 06/06/17 13:00 07/06/17 12:59 Diphenhydramine HCl (Benadryl Cap) 25 mg Q6H PRN PO 06/06/17 13:00 07/06/17 12:59 Amiodarone HCl (Cordarone Tab) 200 mg BID PO 06/06/17 21:00 07/06/17 20:59 06/07/17 08:56 200 MG Aspirin (Ecotrin Tab) 81 mg QAM PO 06/07/17 09:00 07/07/17 08:59 06/07/17 08:57 81 MG Atorvastatin Calcium (Lipitor Tab) 40 mg QPM PO 06/06/17 21:00 07/06/17 20:59 06/06/17 20:18 40 MG Carvedilol (Coreg Tab) 12.5 mg BID PO 06/06/17 21:00 07/06/17 20:59 06/07/17 08:57 12.5 MG Finasteride (Proscar Tab) 5 mg QPM PO 06/06/17 21:00 07/06/17 20:59 06/06/17 20:18 5 MG Terazosin HCl (Hytrin Cap) 20 mg HS PO 06/06/17 21:00 07/06/17 20:59 06/06/17 20:18 20 MG Insulin Aspart (novoLOG ASPART) SLIDING SCALE If C... ACHS SC 06/06/17 17:15 07/06/17 17:14 06/07/17 18:30 3 UNITS Glucose (Glucose 40% Gel) 15-30 GRAMS 15 GRAMS... UD PRN PO 06/06/17 15:45 07/06/17 15:44 Glucose (Glucose Chew Tab) 4-8 Tablets 4 Tabl... UD PRN PO 06/06/17 15:45 07/06/17 15:44 Dextrose (Dextrose 50% 50ML Syringe) 25-50ML OF 50% DW IV FOR... UD PRN IV 06/06/17 15:45 07/06/17 15:44 Glucagon (Glucagon Inj) 1 mg UD PRN SQ 06/06/17 15:45 07/06/17 15:44 Enteral Nutritional Formula (Boost Glucose Control) 1 can QAM PO 06/08/17 09:00 07/08/17 08:59
[2017-06-07] MEDS: ATORVASTATIN 40 MG TAB PO SCH (21:26)
[2017-06-07] MEDS: DOCUSATE SODIUM/SENNA 50/8.6MG TAB PO SCH (21:27)
[2017-06-07] MEDS: FINASTERIDE 5 MG TAB PO SCH (21:38)
[2017-06-08] VITALS (11 sets, daily range): BP systolic 100–140; BP diastolic 43–69; PULSE 59–86; TEMP 36.5–37.4; O2SAT 87–96
[2017-06-08 01:01] LABS: HEMATOCRIT 29.1 % (42-52); MEAN CELL VOLUME 91.8 fL (80-100); MEAN CORPUSCULAR HGB CONC 32.6 g/dl (32-36); MEAN PLATELET VOLUME 9.9 fL (7.4-10.4); PLATELET COUNT 171 K/uL (130-400); RED BLOOD COUNT 3.17 M/uL (4.7-6.1); WHITE BLOOD COUNT 13.18 K/uL (4.8-10.8)
[2017-06-08 01:26] LABS: BUN/CREATININE RATIO 31.8 (10-20); CALCIUM 7.8 mg/dl (8.5-10.1); CREATININE 1.18 mg/dl (0.60-1.40); POTASSIUM 4.6 mmol/L (3.5-5.1)
[2017-06-08 01:44] LABS: BASO % 0.1 %; BASO ABS # 0.01 K/uL (0-0.2); COMPLETE YES; EOS % 0.1 %; IG% 0.4 %; LYMPH % 5.3 %; MONO % 9.3 %; NEUT % 84.8 %
[2017-06-08] MEDS: ONDANSETRON INJ 2 MG/ML 2 ML VIAL IV PRN ×2 (05:31→14:12)
[2017-06-08] MEDS ORDERED: POLYETHYLENE (MIRALAX) 17 GM PACK PO SCH (06:00)
[2017-06-08] MEDS: ACETAMINOPHEN IV 100 ML IV PRN ×2 (06:01→14:18)
[2017-06-08] MEDS ORDERED: BISACODYL 10 MG SUPP PR STA (06:25)
[2017-06-08] MEDS: INSULIN ASPART 100 UNITS/ML 3 ML PEN SC SCH ×5 (08:00→21:00)
[2017-06-08] MEDS: CARVEDILOL 12.5 MG TAB PO SCH ×2 (08:58→21:00)
[2017-06-08] MEDS: ASPIRIN 81 MG ECTAB PO SCH (08:58)
[2017-06-08] MEDS ORDERED: FUROSEMIDE 20 MG TAB PO SCH (09:00)
[2017-06-08] MEDS: BOOST GLUCOSE CONTROL PO SCH (09:02)
[2017-06-08] MEDS: AMIODARONE 200 MG TAB PO SCH ×2 (09:24→21:25)
[2017-06-08] MEDS: SODIUM CHLORIDE 0.9% 1000ML 1,000 ML IV SCH ×2 (09:52→21:22)
[2017-06-08] MEDS ORDERED: NURSING VERBAL MED ORDER ONE (10:00)
--- NOTE | 2017-06-08 10:01 | Progress Note ---
Progress Note Date of Service Jun 08, 2017. Progress Note Patient's back pain is controlled. He describes leg weakness but states his pain is overall improved in his lower summaries. He's been struggling with some nausea this a.m. Denies any headaches. On exam he is up in bed alert and oriented. He is [place] strength testing lower extremity's. Assessment status post multilevel lumbar decompression fusion replant this time will continue physical therapy. Our plan is to discharge to rehabilitation later this weekend.
[2017-06-08] MEDS: OXYCODONE HCL IR 5 MG TAB (IMMEDIATE RELEASE) PO PRN (16:51)
--- NOTE | 2017-06-08 17:43 | Progress Note ---
Medicine Progress Note Date & Time of Visit: Jun 08, 2017 at 17:32. Subjective -somewhat tolerating PO after an episode of nausea nd vomiting this morning. -more fatigued and dizzy since getting Phenergan last night -pt also received Hytrin last night at 20mg which is double the max dose and something he seems confused about. -pt is not ambulating because of pain and dizziness. -he is satting 88% on 2L at this time and was increased to 3L with an adjustment of the nasal canula, which brought his sat to >92% -he denies coughing, fevers or chills. Objective Last 8 Hrs Date Time Temp Pulse Resp B/P (MAP) Pulse Ox O2 Delivery O2 Flow Rate FiO2 06/08/17 15:56 36.7 59 16 116/62 (80) 94 Nasal Cannula 2.0 06/08/17 14:21 36.5 91 Nasal Cannula 2.0 06/08/17 14:17 69 06/08/17 14:15 100/43 (62) 87 Room Air 06/08/17 12:53 37.4 60 14 140/64 (89) 90 Nasal Cannula 06/08/17 10:45 Room Air Physical Exam: GEN: obese, in no acute distress, alert and oriented but easily falls asleep. HEENT: NC/AT, normal sclerae, MMM CARDIO: reg rate, S1/2 heard without m/g/r LUNGS: CTA bilaterally, no crackles, rales or wheezes, good diaphragmatic excursion BACK: bandage in place over wound-c/d/i, drain in place. ABD: soft, non-tender, non-distended, no rebound or guarding, +BS EXTREMITY: RP and DP palpable 2+ bilat, no LE swelling or edema, extremities are warm and well-perfused NEURO: CN 2-12 grossly intact, sensation intact throughout MUSC: 5/5 strength throughout, no focal deficits, moves all extremities fairly easily SKIN: warm and dry and wound as above. Laboratory Results: 06/08/17 00:50 Red Blood Count 3.17, Mean Corpuscular Volume 91.8, Mean Corpuscular Hemoglobin 30.0, Mean Corpuscular Hemoglobin Concent 32.6, Mean Platelet Volume 9.9, Neutrophils (%) (Auto) 84.8, Lymphocytes (%) (Auto) 5.3, Monocytes (%) (Auto) 9.3, Eosinophils (%) (Auto) 0.1, Basophils (%) (Auto) 0.1, Neutrophils # (Auto) 11.19, Lymphocytes # (Auto) 0.70, Monocytes # (Auto) 1.22, Eosinophils # (Auto) 0.01, Basophils # (Auto) 0.01 06/08/17 00:50 Test 05/10/17 09:35 06/06/17 21:49 06/07/17 05:54 06/08/17 00:50 Urine Color YELLOW Urine Appearance CLEAR (CLEAR) Urine pH 8.5 (4.5-7.5) Urine Specific [place] 1.021 (1.000-1.030) Urine Protein NEG (NEG) Urine Glucose (UA) NEG (NEG) Urine Ketones NEG (NEG) Urine Occult Blood NEG (NEG) Urine Nitrite NEG (NEG) Urine Bilirubin NEG (NEG) Urine Urobilinogen NEG (NEG) Urine Leukocyte Esterase NEG (NEG) Magnesium Level 1.8 mg/dl (1.8-2.4) Thyroid Stimulating Hormone (TSH) 1.810 uIu/ml (0.300-4.500) Estimated Average Glucose 111 mg/dl Hemoglobin A1c 5.5 % (4.5-5.6) White Blood Count 13.18 K/uL (4.8-10.8) Red Blood Count 3.17 M/uL (4.7-6.1) Hemoglobin 9.5 g/dL (14.0-18.0) Hematocrit 29.1 % (42-52) Mean Corpuscular Volume 91.8 fL (80-100) Mean Corpuscular Hemoglobin 30.0 pg (25-34) Mean Corpuscular Hemoglobin Concent 32.6 g/dl (32-36) Platelet Count 171 K/uL (130-400) Mean Platelet Volume 9.9 fL (7.4-10.4) Neutrophils (%) (Auto) 84.8 % Lymphocytes (%) (Auto) 5.3 % Monocytes (%) (Auto) 9.3 % Eosinophils (%) (Auto) 0.1 % Basophils (%) (Auto) 0.1 % Neutrophils # (Auto) 11.19 K/uL (1.4-6.5) Lymphocytes # (Auto) 0.70 K/uL (1.2-3.4) Monocytes # (Auto) 1.22 K/uL (0.11-0.59) Eosinophils # (Auto) 0.01 K/uL (0-0.5) Basophils # (Auto) 0.01 K/uL (0-0.2) RDW Standard Deviation 50.7 fL (36.4-46.3) RDW Coefficient of Variation 14.8 % (11.5-14.5) Immature Granulocyte % (Auto) 0.4 % Immature Granulocyte # (Auto) 0.05 K/uL (0.00-0.02) Anion Gap 3.0 mmol/L (3-11) Est Creatinine Clear Calc Drug Dose 58.9 ml/min Estimated GFR () 66.7 Estimated GFR (Non- 57.5 BUN/Creatinine Ratio 31.8 (10-20) Calcium Level 7.8 mg/dl (8.5-10.1) Total Bilirubin 0.5 mg/dl (0.2-1) Direct Bilirubin 0.2 mg/dl (0-0.2) Aspartate Amino Transf (AST/SGOT) 47 U/L (15-37) Alanine Aminotransferase (ALT/SGPT) 43 U/L (12-78) Alkaline Phosphatase 63 U/L (45-117) Total Protein 5.4 gm/dl (6.4-8.2) Albumin 2.7 gm/dl (3.4-5.0) Lipase 66 U/L (73-393) Test 06/08/17 17:16 Bedside Glucose 108 mg/dl (70-99) Last 24 Hours Test 06/07/17 19:18 06/07/17 20:27 06/08/17 00:50 06/08/17 08:11 Hemoglobin 9.5 g/dL 9.5 g/dL Hematocrit 29.7 % 29.1 % Bedside Glucose 103 mg/dl 109 mg/dl White Blood Count 13.18 K/uL Red Blood Count 3.17 M/uL Mean Corpuscular Volume 91.8 fL Mean Corpuscular Hemoglobin 30.0 pg Mean Corpuscular Hemoglobin Concent 32.6 g/dl Platelet Count 171 K/uL Mean Platelet Volume 9.9 fL Neutrophils (%) (Auto) 84.8 % Lymphocytes (%) (Auto) 5.3 % Monocytes (%) (Auto) 9.3 % Eosinophils (%) (Auto) 0.1 % Basophils (%) (Auto) 0.1 % Neutrophils # (Auto) 11.19 K/uL Lymphocytes # (Auto) 0.70 K/uL Monocytes # (Auto) 1.22 K/uL Eosinophils # (Auto) 0.01 K/uL Basophils # (Auto) 0.01 K/uL RDW Standard Deviation 50.7 fL RDW Coefficient of Variation 14.8 % Immature Granulocyte % (Auto) 0.4 % Immature Granulocyte # (Auto) 0.05 K/uL Sodium Level 136 mmol/L Potassium Level 4.6 mmol/L Chloride Level 107 mmol/L Carbon Dioxide Level 26 mmol/L Anion Gap 3.0 mmol/L Blood Urea Nitrogen 38 mg/dl Creatinine 1.18 mg/dl Est Creatinine Clear Calc Drug Dose 58.9 ml/min Estimated GFR () 66.7 Estimated GFR (Non- 57.5 BUN/Creatinine Ratio 31.8 Random Glucose 105 mg/dl Calcium Level 7.8 mg/dl Total Bilirubin 0.5 mg/dl Direct Bilirubin 0.2 mg/dl Aspartate Amino Transf (AST/SGOT) 47 U/L Alanine Aminotransferase (ALT/SGPT) 43 U/L Alkaline Phosphatase 63 U/L Total Protein 5.4 gm/dl Albumin 2.7 gm/dl Lipase 66 U/L Test 06/08/17 12:00 06/08/17 17:16 Bedside Glucose 114 mg/dl 108 mg/dl Assessment & Plan S/P L2-S1 DECOMPRESSION - POD#2 - activity and wound care orders as per ortho - pain control with bowel regimen - PT/OT - monitor H/H for acute blood loss anemia and transfuse blood products PRN HYPOXIA: uncertain etiology, ?atelectasis. Lungs are clear. Ordering CXR now. Cont incentive spirometry. Lasix on hold. DIZZINESS: pt appears fatigued and reports some dizziness, has not been able to stand or ambulate. Reports one episode of vomiting this morning and some nausea last night. He received Phenergan IV, which can have sedative effects in the elderly so this was stopped along with Hytrin which can contribute to dizziness, especially at this dose. The patient appears confused about his Hytrin dose and thought it was only supposed to be 2mg. For now, will hold altogether. URINARY RETENTION: acute retention this morning requiring straight cath with 600 ml out. This was a failed void after Martin was removed this morning per protocol. Nurse was instructed that if he was found to be retaining >400cc after 8 hours, to notify the doc electronic equipment repairmen for consideration of replacing the Martin catheter with an outpatient TOV. Of note, a side effect of phenergan is dizziness and urinary retention. NON ISCHEMIC CARDIOMYOPATHY -appears euvolemic but has some hypoxia that began today. Lasix was restarted, however, the patient was placed back on IVF likely in an attempt to help with the UOP. Will obtain a CXR at this time to investigate further. For now, will hold the Lasix. Lung exam is clear and he is not coughing or febrile. He denies any weight gain or swelling that is new. He doesn't have orthopnea, but cannot lay flat because of the pain in his back. Cont Coreg V-TACH S/P AICD/PACER - continue Amiodarone DM A1C 5.5 on metformin as outpatient, well below goal for his age. Inpatient glucose slightly elevated likely related to steroid use hailey-operatively. Would consider stopping metformin on discharge with close PCP follow-up based on this A1C value as hypoglycemia is dangerous in this age group. HTN - BP controlled, continue carvedilol HLD - continue statin BPH - continue finasteride DVT PROPHYLAXIS - TEDs/SCDs per ortho Thank you for this consultation. We will follow the patient with you during their hospital stay. You can reach a member of the [facility] Hospitalist Team 15/01 via pager @ [phone]. Carmen Flores DO [facility] Current [facility]patient Medications: Current Inpatient Medications Medications (Trade) Dose Ordered Sig/Heydi Route Start Time Stop Time Status Last Admin Dose Admin Promethazine HCl 12.5 mg/Sodium Chloride 50.5 ml @ 202 mls/hr Q6H PRN IV 06/06/17 13:00 07/06/17 12:59 06/08/17 05:45 202 MLS/HR Ondansetron HCl (Zofran Inj) 4 mg Q6H PRN IV 06/06/17 13:00 07/06/17 12:59 06/08/17 14:12 4 MG Metoclopramide HCl (Reglan Inj) 10 mg Q6H PRN IV 06/06/17 13:00 07/06/17 12:59 Lorazepam (Ativan Tab) 0.5 mg Q8H PRN PO 06/06/17 13:00 07/06/17 12:59 Lorazepam 0.5 mg/ Syringe 0.25 ml @ 1 mls/min Q8H PRN IV 06/06/17 13:00 07/06/17 12:59 Pneumococcal Polysaccharide Vaccine 1 ea PRN PRN N/A 06/06/17 13:00 07/06/17 12:59 Influenza Virus Vacc Triv Types A&B 1 ea PRN PRN N/A 06/06/17 13:00 07/06/17 12:59 Bisacodyl (Dulcolax Supp) 10 mg DAILY PRN [place] 06/06/17 13:00 07/06/17 12:59 Magnesium Hydroxide (Milk Of Magnesia Susp) 30 ml DAILY PRN PO 06/06/17 13:00 07/06/17 12:59 Hydromorphone HCl (Dilaudid Inj) 0.5-1mg prn moder... Q3H PRN IV 06/07/17 06:00 06/21/17 05:59 Oxycodone HCl (Roxicodone Immediate Rel Tab) 5-10mg prn moderate to sev... Q4H PRN PO 06/07/17 06:00 06/21/17 05:59 06/08/17 16:51 5 MG Acetaminophen (Tylenol Tab) 1,000 mg Q8H PRN PO 06/06/17 13:00 07/06/17 12:59 06/07/17 16:10 1,000 MG Acetaminophen 100 ml @ 400 mls/hr Q8H PRN IV 06/06/17 13:00 07/06/17 12:59 06/08/17 14:18 400 MLS/HR Naloxone HCl (Narcan Inj) 0.1 mg Q5M PRN IV 06/06/17 13:00 07/06/17 12:59 Senna/Docusate Sodium (Senokot S Tab) 2 tab HS PO 06/06/17 21:00 07/06/17 20:59 06/07/17 21:27 2 TAB Sodium Biphosphate/ Sodium Phosphate (Fleet Enema) 132 ml ONE PRN [place] 06/06/17 13:00 07/06/17 12:59 Hydroxyzine HCl (Vistaril Tab) 25 mg Q8H PRN PO 06/06/17 13:00 07/06/17 12:59 Al Hydroxide/Mg Hydroxide (Maalox Susp) 30 ml Q6H PRN PO 06/06/17 13:00 07/06/17 12:59 Famotidine (Pepcid Tab) 20 mg Q12 PRN PO 06/06/17 13:00 07/06/17 12:59 Diphenhydramine HCl (Benadryl Cap) 25 mg Q6H PRN PO 06/06/17 13:00 07/06/17 12:59 Amiodarone HCl (Cordarone Tab) 200 mg BID PO 06/06/17 21:00 07/06/17 20:59 06/08/17 09:24 200 MG Aspirin (Ecotrin Tab) 81 mg QAM PO 06/07/17 09:00 07/07/17 08:59 06/08/17 08:58 81 MG Atorvastatin Calcium (Lipitor Tab) 40 mg QPM PO 06/06/17 21:00 07/06/17 20:59 06/07/17 21:26 40 MG Carvedilol (Coreg Tab) 12.5 mg BID PO 06/06/17 21:00 07/06/17 20:59 06/08/17 08:58 12.5 MG Finasteride (Proscar Tab) 5 mg QPM PO 06/06/17 21:00 07/06/17 20:59 06/07/17 21:38 5 MG Terazosin HCl (Hytrin Cap) 20 mg HS PO 06/06/17 21:00 07/06/17 20:59 06/07/17 21:26 20 MG Insulin Aspart (novoLOG ASPART) SLIDING SCALE If C... ACHS SC 06/06/17 17:15 07/06/17 17:14 06/08/17 13:15 5 UNITS Glucose (Glucose 40% Gel) 15-30 GRAMS 15 GRAMS... UD PRN PO 06/06/17 15:45 07/06/17 15:44 Glucose (Glucose Chew Tab) 4-8 Tablets 4 Tabl... UD PRN PO 06/06/17 15:45 07/06/17 15:44 Dextrose (Dextrose 50% 50ML Syringe) 25-50ML OF 50% DW IV FOR... UD PRN IV 06/06/17 15:45 07/06/17 15:44 Glucagon (Glucagon Inj) 1 mg UD PRN SQ 06/06/17 15:45 07/06/17 15:44 Enteral Nutritional Formula (Boost Glucose Control) 1 can QAM PO 06/08/17 09:00 07/08/17 08:59 06/08/17 09:02 1 CAN Sodium Chloride 1,000 ml @ 80 mls/hr [id number] IV 06/07/17 19:15 07/07/17 19:14 06/08/17 09:52 80 MLS/HR
--- NOTE | 2017-06-08 17:51 | DIAGNOSTIC IMAGING REPORT ---
CHEST ONE VIEW PORTABLE CLINICAL HISTORY: 81 years-old Male presenting with hypoxia post-op back surgery. TECHNIQUE: Portable upright AP view of the chest was obtained. COMPARISON: None. FINDINGS: Left subclavian implanted cardiac defibrillator with leads to the right atrium, coronary sinus, and right ventricular apex. Atherosclerosis of aortic arch. Cardiac silhouette is moderately enlarged. Overall low lung volumes. Hazy basilar predominant opacities likely with small pleural effusions. No large pneumothorax. Degenerative changes of the thoracic spine. Mild gaseous distention of the stomach. IMPRESSION: 1. Cardiomegaly with hazy basilar predominant opacities concerning for pulmonary edema with small pleural effusions. Aspiration could appear similarly. Electronically signed by: Orville Ruvalcaba M.D. 06/08/2017 5:50 PM Dictated Date/Time: 06/08/2017 5:48 PM
[2017-06-08] MEDS: FINASTERIDE 5 MG TAB PO SCH (21:22)
[2017-06-08] MEDS: DOCUSATE SODIUM/SENNA 50/8.6MG TAB PO SCH (21:22)
[2017-06-08] MEDS: ATORVASTATIN 40 MG TAB PO SCH (21:25)
[2017-06-08] MEDS ORDERED: FUROSEMIDE 20 MG TAB PO ONE (22:45)
[2017-06-08] MEDS ORDERED: ALBUT/IPRATROP 3MG/0.5MG NEB 3 ML VIAL INH PRN (22:45)
[2017-06-08] MEDS ORDERED: ALBUT/IPRATROP 3MG/0.5MG NEB 3 ML VIAL INH STA (22:49)
[2017-06-09 00:01] VITALS: PULSE 60; O2SAT 99
[2017-06-09 07:52] LABS: HEMATOCRIT 28.2 % (42-52); MEAN CELL VOLUME 93.1 fL (80-100); MEAN CORPUSCULAR HEMOGLOBIN 30.7 pg (25-34); MEAN PLATELET VOLUME 10.9 fL (7.4-10.4); PLATELET COUNT 193 K/uL (130-400); RED BLOOD COUNT 3.03 M/uL (4.7-6.1); WHITE BLOOD COUNT 9.44 K/uL (4.8-10.8)
[2017-06-09 08:00] VITALS: BP 157/70; PULSE 65; TEMP 36.6; O2SAT 94
[2017-06-09 08:30] LABS: BUN/CREATININE RATIO 26.5 (10-20); CALCIUM 8.1 mg/dl (8.5-10.1); CREATININE 1.04 mg/dl (0.60-1.40); POTASSIUM 4.1 mmol/L (3.5-5.1)
[2017-06-09] MEDS ORDERED: TRAMADOL HCL 50 MG TAB PO PRN (08:45)
[2017-06-09] MEDS: BOOST GLUCOSE CONTROL PO SCH (08:53)
[2017-06-09] MEDS: ASPIRIN 81 MG ECTAB PO SCH (08:54)
[2017-06-09] MEDS ORDERED: FUROSEMIDE 20 MG TAB PO SCH ×2 (09:00)
[2017-06-09] MEDS ORDERED: FUROSEMIDE INJ 20 MG in SYRINGE 0 ML IV SCH (09:00)
[2017-06-09] MEDS: INSULIN ASPART 100 UNITS/ML 3 ML PEN SC SCH ×4 (09:03→21:00)
--- NOTE | 2017-06-09 09:14 | Progress Note ---
Medicine Progress Note Date & Time of Visit: Jun 09, 2017 at 08:50. Subjective -lightheadedness resolved overnight but became worse in the last 30 minutes after he tried to get up. -denies swelling, chest pain, cough, fevers, chills, palpitations, headache, stroke-like symptoms -reports severe pain with attempting to get out of bed which then triggered the lightheadedness. -tolerating PO without difficulty this morning. -reports that he feels generally weak and the weakness in his hands caused him difficulties feeding himself this morning. Objective Last 8 Hrs Date Time Temp Pulse Resp B/P (MAP) Pulse Ox O2 Delivery O2 Flow Rate FiO2 06/09/17 08:00 36.6 65 20 157/70 (99) 94 Nasal Cannula 4.0 Physical Exam: GEN: obese, in no acute distress, alert and oriented HEENT: NC/AT, normal sclerae, MMM, EOMI, no nystagmus, pupils are equal and round CARDIO: reg rate, S1/2 heard without m/g/r LUNGS: coarse rhonchi, poor effort by patient, no rales or wheezes, good diaphragmatic excursion BACK: bandage in place over wound-c/d/i, drain in place. ABD: soft, non-tender, non-distended, no rebound or guarding, +BS EXTREMITY: RP and DP palpable 2+ bilat, no LE swelling or edema, extremities are warm and well-perfused. No edema in hands and feet but they do appear slightly puffy. Pt states he is at baseline. NEURO: CN 2-12 grossly intact, sensation intact throughout, finger to nose intact, speech and mentation intact MUSC: 5/5 strength throughout including finger spread and finisher screwdown strength, no focal deficits, moves all extremities fairly easily SKIN: warm and dry and wound as above. Laboratory Results: 06/09/17 07:13 06/09/17 07:13 Test 05/10/17 09:35 06/06/17 21:49 06/07/17 05:54 06/08/17 00:50 Urine Color YELLOW Urine Appearance CLEAR (CLEAR) Urine pH 8.5 (4.5-7.5) Urine Specific [place] 1.021 (1.000-1.030) Urine Protein NEG (NEG) Urine Glucose (UA) NEG (NEG) Urine Ketones NEG (NEG) Urine Occult Blood NEG (NEG) Urine Nitrite NEG (NEG) Urine Bilirubin NEG (NEG) Urine Urobilinogen NEG (NEG) Urine Leukocyte Esterase NEG (NEG) Thyroid Stimulating Hormone (TSH) 1.810 uIu/ml (0.300-4.500) Estimated Average Glucose 111 mg/dl Hemoglobin A1c 5.5 % (4.5-5.6) Immature Granulocyte % (Auto) 0.4 % White Blood Count 13.18 K/uL (4.8-10.8) Red Blood Count 3.17 M/uL (4.7-6.1) Hemoglobin 9.5 g/dL (14.0-18.0) Hematocrit 29.1 % (42-52) Mean Corpuscular Volume 91.8 fL (80-100) Mean Corpuscular Hemoglobin 30.0 pg (25-34) Mean Corpuscular Hemoglobin Concent 32.6 g/dl (32-36) Platelet Count 171 K/uL (130-400) Mean Platelet Volume 9.9 fL (7.4-10.4) Neutrophils (%) (Auto) 84.8 % Lymphocytes (%) (Auto) 5.3 % Monocytes (%) (Auto) 9.3 % Eosinophils (%) (Auto) 0.1 % Basophils (%) (Auto) 0.1 % Neutrophils # (Auto) 11.19 K/uL (1.4-6.5) Lymphocytes # (Auto) 0.70 K/uL (1.2-3.4) Monocytes # (Auto) 1.22 K/uL (0.11-0.59) Eosinophils # (Auto) 0.01 K/uL (0-0.5) Basophils # (Auto) 0.01 K/uL (0-0.2) Immature Granulocyte # (Auto) 0.05 K/uL (0.00-0.02) Total Bilirubin 0.5 mg/dl (0.2-1) Direct Bilirubin 0.2 mg/dl (0-0.2) Aspartate Amino Transf (AST/SGOT) 47 U/L (15-37) Alanine Aminotransferase (ALT/SGPT) 43 U/L (12-78) Alkaline Phosphatase 63 U/L (45-117) Total Protein 5.4 gm/dl (6.4-8.2) Albumin 2.7 gm/dl (3.4-5.0) Lipase 66 U/L (73-393) Test 06/09/17 07:13 06/09/17 08:09 Red Blood Count 3.03 M/uL (4.7-6.1) Mean Corpuscular Volume 93.1 fL (80-100) Mean Corpuscular Hemoglobin 30.7 pg (25-34) Mean Corpuscular Hemoglobin Concent 33.0 g/dl (32-36) RDW Standard Deviation 51.0 fL (36.4-46.3) RDW Coefficient of Variation 14.9 % (11.5-14.5) Mean Platelet Volume 10.9 fL (7.4-10.4) Anion Gap 5.0 mmol/L (3-11) Est Creatinine Clear Calc Drug Dose 66.8 ml/min Estimated GFR () 77.7 Estimated GFR (Non- 67.0 BUN/Creatinine Ratio 26.5 (10-20) Calcium Level 8.1 mg/dl (8.5-10.1) Magnesium Level 2.0 mg/dl (1.8-2.4) Bedside Glucose 108 mg/dl (70-99) Last 24 Hours Test 06/08/17 12:00 06/08/17 17:16 06/08/17 20:44 06/09/17 07:13 Bedside Glucose 114 mg/dl 108 mg/dl 109 mg/dl White Blood Count 9.44 K/uL Red Blood Count 3.03 M/uL Hemoglobin 9.3 g/dL Hematocrit 28.2 % Mean Corpuscular Volume 93.1 fL Mean Corpuscular Hemoglobin 30.7 pg Mean Corpuscular Hemoglobin Concent 33.0 g/dl RDW Standard Deviation 51.0 fL RDW Coefficient of Variation 14.9 % Platelet Count 193 K/uL Mean Platelet Volume 10.9 fL Sodium Level 139 mmol/L Potassium Level 4.1 mmol/L Chloride Level 109 mmol/L Carbon Dioxide Level 25 mmol/L Anion Gap 5.0 mmol/L Blood Urea Nitrogen 28 mg/dl Creatinine 1.04 mg/dl Est Creatinine Clear Calc Drug Dose 66.8 ml/min Estimated GFR () 77.7 Estimated GFR (Non- 67.0 BUN/Creatinine Ratio 26.5 Random Glucose 91 mg/dl Calcium Level 8.1 mg/dl Magnesium Level 2.0 mg/dl Test 06/09/17 08:09 Bedside Glucose 108 mg/dl Assessment & Plan S/P L2-S1 DECOMPRESSION - POD#3 - activity and wound care orders as per ortho - pain control with bowel regimen - PT/OT - monitor H/H for acute blood loss anemia and transfuse blood products PRN HYPOXIA: poss 2/2 volume overload with 5L IVF plus two units of blood in the last 3 days vs atelectasis. coarse rhonchi on exam but exam is limited as patient very weak and not following instructions well. CXR last night revealed some volume overload. IVF were stopped and one dose of PO Lasix was given. Increased hypoxia this morning. Switching Lasix to IV now. Cont incentive spirometer. Added 2gm salt restriction to diet. NON ISCHEMIC CARDIOMYOPATHY-plan as above. Cont medical management with Coreg DIZZINESS: intermittent, resolved last night but came on again when he attempted ambulation this morning. Poss related to anemia, but numbers do not appear low this morning. Most offending agents have been stopped. Oxycodone held and will give scheduled Tylenol punctuated by Tramadol PRN breakthrough pain. Normal neuro exam today with the exception of the patient not standing. No nystagmus on exam. Mentating clearly without any focal deficits. I am less concerned about a central process at this time and do not think head imaging needed. Will attempt to get orthostatic vital signs. URINARY RETENTION: resolved. ANEMIA: post-op blood loss, s/p 2 Units of blood this admission. V-TACH S/P AICD/PACER -asymptomatic -baseline EKG this am -continue Amiodarone DM A1C 5.5 on metformin as outpatient, well below goal for his age. Inpatient glucose slightly elevated likely related to steroid use hailey-operatively. Would consider stopping metformin on discharge with close PCP follow-up based on this A1C value as hypoglycemia is dangerous in this age group. HTN - BP controlled, continue carvedilol HLD - continue statin BPH - continue finasteride -Hytrin held in light of dizziness DVT PROPHYLAXIS - TEDs/SCDs per ortho Thank you for this consultation. We will follow the patient with you during their hospital stay. You can reach a member of the [place] Hospitalist Team 15/01 via pager @ [phone]. Carmen Flores DO [facility]ist Current Inpatient Medications: Current Inpatient Medications Medications (Trade) Dose Ordered Sig/Heydi Route Start Time Stop Time Status Last Admin Dose Admin Ondansetron HCl (Zofran Inj) 4 mg Q6H PRN IV 06/06/17 13:00 07/06/17 12:59 06/08/17 14:12 4 MG Pneumococcal Polysaccharide Vaccine 1 ea PRN PRN N/A 06/06/17 13:00 07/06/17 12:59 Influenza Virus Vacc Triv Types A&B 1 ea PRN PRN N/A 06/06/17 13:00 07/06/17 12:59 Bisacodyl (Dulcolax Supp) 10 mg DAILY PRN [place] 06/06/17 13:00 07/06/17 12:59 Magnesium Hydroxide (Milk Of Magnesia Susp) 30 ml DAILY PRN PO 06/06/17 13:00 07/06/17 12:59 Hydromorphone HCl (Dilaudid Inj) 0.5-1mg prn moder... Q3H PRN IV 06/07/17 06:00 06/21/17 05:59 Oxycodone HCl (Roxicodone Immediate Rel Tab) 5-10mg prn moderate to sev... Q4H PRN PO 06/07/17 06:00 06/21/17 05:59 06/08/17 16:51 5 MG Naloxone HCl (Narcan Inj) 0.1 mg Q5M PRN IV 06/06/17 13:00 07/06/17 12:59 Senna/Docusate Sodium (Senokot S Tab) 2 tab HS PO 06/06/17 21:00 07/06/17 20:59 06/08/17 21:22 2 TAB Sodium Biphosphate/ Sodium Phosphate (Fleet Enema) 132 ml ONE PRN [place] 06/06/17 13:00 07/06/17 12:59 Hydroxyzine HCl (Vistaril Tab) 25 mg Q8H PRN PO 06/06/17 13:00 07/06/17 12:59 Future Hold Al Hydroxide/Mg Hydroxide (Maalox Susp) 30 ml Q6H PRN PO 06/06/17 13:00 07/06/17 12:59 Famotidine (Pepcid Tab) 20 mg Q12 PRN PO 06/06/17 13:00 07/06/17 12:59 Diphenhydramine HCl (Benadryl Cap) 25 mg Q6H PRN PO 06/06/17 13:00 07/06/17 12:59 Future Hold Amiodarone HCl (Cordarone Tab) 200 mg BID PO 06/06/17 21:00 07/06/17 20:59 06/08/17 21:25 200 MG Aspirin (Ecotrin Tab) 81 mg QAM PO 06/07/17 09:00 07/07/17 08:59 06/08/17 08:58 81 MG Atorvastatin Calcium (Lipitor Tab) 40 mg QPM PO 06/06/17 21:00 07/06/17 20:59 06/08/17 21:25 40 MG Finasteride (Proscar Tab) 5 mg QPM PO 06/06/17 21:00 07/06/17 20:59 06/08/17 21:22 5 MG Insulin Aspart (novoLOG ASPART) SLIDING SCALE If C... ACHS SC 06/06/17 17:15 07/06/17 17:14 06/08/17 13:15 5 UNITS Glucose (Glucose 40% Gel) 15-30 GRAMS 15 GRAMS... UD PRN PO 06/06/17 15:45 07/06/17 15:44 Glucose (Glucose Chew Tab) 4-8 Tablets 4 Tabl... UD PRN PO 06/06/17 15:45 07/06/17 15:44 Dextrose (Dextrose 50% 50ML Syringe) 25-50ML OF 50% DW IV FOR... UD PRN IV 06/06/17 15:45 07/06/17 15:44 Glucagon (Glucagon Inj) 1 mg UD PRN SQ 06/06/17 15:45 07/06/17 15:44 Enteral Nutritional Formula (Boost Glucose Control) 1 can QAM PO 06/08/17 09:00 07/08/17 08:59 06/08/17 09:02 1 CAN Albuterol/ Ipratropium (Duoneb) 3 ml Q2H PRN INH 06/08/17 22:45 07/08/17 22:44 Carvedilol (Coreg Tab) 3.125 mg BID PO 06/09/17 09:00 07/06/17 20:59 Furosemide 20 mg/ Syringe 2 ml @ 4 mls/min [id number] IV 06/09/17 09:00 07/09/17 08:59
[2017-06-09] MEDS ORDERED: FUROSEMIDE INJ 40 MG in SYRINGE 0 ML IV ONE (09:15)
[2017-06-09] MEDS: CARVEDILOL 3.125 MG TAB PO SCH ×2 (09:32→21:40)
[2017-06-09] MEDS: AMIODARONE 200 MG TAB PO SCH ×2 (09:33→21:39)
[2017-06-09] MEDS: ACETAMINOPHEN 500 MG TAB PO SCH ×3 (10:07→21:42)
[2017-06-09 10:32] VITALS: BP_SYST 101; BP_SYST 102; BP_SYST 117; BP_SYST 128; BP_DIAS 56; BP_DIAS 59; BP_DIAS 61; BP_DIAS 64
--- NOTE | 2017-06-09 11:01 | Progress Note ---
Progress Note Date of Service Jun 09, 2017. Progress Note Patient's progressing very slowly. Today he complains mostly of back pain. He denies any leg pain. He describes lightheadedness. He denies specific headache symptoms. Vital signs are stable. He has reasonable strength testing. Hematocrit stable. Assessment status post multilevel lumbar decompression fusion. Planned this time as caution we will change his dressing DC drain. Request that he stay in bed until the a.m. at which time we will reinitiate physical therapy.
[2017-06-09 15:23] VITALS: BP 124/72; PULSE 67; TEMP 36.9; O2SAT 98
[2017-06-09] MEDS: FUROSEMIDE INJ 20 MG in SYRINGE 0 ML IV SCH (17:10)
[2017-06-09] MEDS: ATORVASTATIN 40 MG TAB PO SCH (21:40)
[2017-06-09] MEDS: FINASTERIDE 5 MG TAB PO SCH (21:41)
[2017-06-09] MEDS: DOCUSATE SODIUM/SENNA 50/8.6MG TAB PO SCH (21:41)
[2017-06-09 21:45] VITALS: BP_SYST 100; BP_SYST 109; BP_SYST 126; BP_DIAS 61; BP_DIAS 64; BP_DIAS 66
[2017-06-09 23:36] VITALS: BP_SYST 109; BP_SYST 115; BP_SYST 131; BP_DIAS 58; BP_DIAS 61; BP_DIAS 62; PULSE 60; TEMP 37; O2SAT 97
[2017-06-10] VITALS (12 sets, daily range): BP systolic 111–162; BP diastolic 57–74; PULSE 60–64; TEMP 36.5–36.6; O2SAT 88–100
[2017-06-10] MEDS: ACETAMINOPHEN 500 MG TAB PO SCH ×3 (05:16→21:43)
[2017-06-10 07:27] LABS: HEMATOCRIT 26.8 % (42-52); MEAN CELL VOLUME 93.1 fL (80-100); MEAN CORPUSCULAR HEMOGLOBIN 30.2 pg (25-34); MEAN CORPUSCULAR HGB CONC 32.5 g/dl (32-36); PLATELET COUNT 169 K/uL (130-400); RED BLOOD COUNT 2.88 M/uL (4.7-6.1); WHITE BLOOD COUNT 9.33 K/uL (4.8-10.8)
[2017-06-10 07:39] LABS: INR 1.1 (0.9-1.1); PROTHROMBIN TIME (PATIENT) 11.9 SECONDS (9.0-12.0)
[2017-06-10 07:55] LABS: BUN/CREATININE RATIO 27.2 (10-20); CALCIUM 8.3 mg/dl (8.5-10.1); CREATININE 0.88 mg/dl (0.60-1.40); MAGNESIUM 1.9 mg/dl (1.8-2.4); POTASSIUM 3.8 mmol/L (3.5-5.1)
[2017-06-10] MEDS: FUROSEMIDE INJ 20 MG in SYRINGE 0 ML IV SCH ×2 (08:23→16:36)
[2017-06-10] MEDS: ASPIRIN 81 MG ECTAB PO SCH (08:23)
[2017-06-10] MEDS: AMIODARONE 200 MG TAB PO SCH ×2 (08:23→21:43)
[2017-06-10] MEDS: CARVEDILOL 3.125 MG TAB PO SCH ×2 (08:24→21:43)
[2017-06-10] MEDS: ONDANSETRON INJ 2 MG/ML 2 ML VIAL IV PRN (08:25)
[2017-06-10] MEDS: INSULIN ASPART 100 UNITS/ML 3 ML PEN SC SCH ×4 (08:32→21:33)
[2017-06-10] MEDS: BOOST GLUCOSE CONTROL PO SCH (08:32)
[2017-06-10] MEDS ORDERED: MECLIZINE HCL 25 MG TAB PO STA (13:09)
--- NOTE | 2017-06-10 13:18 | Progress Note ---
Medicine Progress Note Date & Time of Visit: Jun 10, 2017 at 12:54. Subjective -pt states he doesn't feel well overall -he reports that he is still feeling lightheaded and that his back pain is persistent and not much better -he is complaining about his food -he reports dizziness when he turns his head or changes position -he has been up and in the bedside chair and is asking to get back in bed -he is asking for some Aleve to help his back pain -he denies chest pain, shortness of breath, cough, fevers or chills. Objective Last 8 Hrs Date Time Temp Pulse Resp B/P (MAP) Pulse Ox O2 Delivery O2 Flow Rate FiO2 06/10/17 10:11 62 111/63 (79) 64 113/57 (75) 06/10/17 07:40 Nasal Cannula 4.0 Humidified Oxygen 06/10/17 07:23 36.6 60 20 137/60 (85) 96 Nasal Cannula 4.0 Physical Exam: GEN: obese, in no acute distress, alert and oriented HEENT: NC/AT, normal sclerae, MMM, pupils are equal and round, TM normal, pearly appearance with no fluid or erythema on the L, R external ear canal blocked by cerumen. CARDIO: reg rate, S1/2 heard without m/g/r LUNGS: clear to auscultation bilaterally BACK: bandage in place over wound-c/d/i, drain in place. ABD: soft, non-tender, non-distended, no rebound or guarding, +BS EXTREMITY: RP and DP palpable 2+ bilat, no LE swelling or edema, extremities are warm and well-perfused. No edema in hands and feet. NEURO: CN 2-12 grossly intact, sensation intact throughout, finger to nose intact, speech and mentation intact MUSC: 5/5 strength throughout, moves all extremities equally. SKIN: warm and dry and wound as above. Laboratory Results: 06/10/17 07:08 06/10/17 07:08 Test 05/10/17 09:35 06/06/17 21:49 06/07/17 05:54 06/08/17 00:50 Urine Color YELLOW Urine Appearance CLEAR (CLEAR) Urine pH 8.5 (4.5-7.5) Urine Specific Morton 1.021 (1.000-1.030) Urine Protein NEG (NEG) Urine Glucose (UA) NEG (NEG) Urine Ketones NEG (NEG) Urine Occult Blood NEG (NEG) Urine Nitrite NEG (NEG) Urine Bilirubin NEG (NEG) Urine Urobilinogen NEG (NEG) Urine Leukocyte Esterase NEG (NEG) Thyroid Stimulating Hormone (TSH) 1.810 uIu/ml (0.300-4.500) Estimated Average Glucose 111 mg/dl Hemoglobin A1c 5.5 % (4.5-5.6) Immature Granulocyte % (Auto) 0.4 % White Blood Count 13.18 K/uL (4.8-10.8) Red Blood Count 3.17 M/uL (4.7-6.1) Hemoglobin 9.5 g/dL (14.0-18.0) Hematocrit 29.1 % (42-52) Mean Corpuscular Volume 91.8 fL (80-100) Mean Corpuscular Hemoglobin 30.0 pg (25-34) Mean Corpuscular Hemoglobin Concent 32.6 g/dl (32-36) Platelet Count 171 K/uL (130-400) Mean Platelet Volume 9.9 fL (7.4-10.4) Neutrophils (%) (Auto) 84.8 % Lymphocytes (%) (Auto) 5.3 % Monocytes (%) (Auto) 9.3 % Eosinophils (%) (Auto) 0.1 % Basophils (%) (Auto) 0.1 % Neutrophils # (Auto) 11.19 K/uL (1.4-6.5) Lymphocytes # (Auto) 0.70 K/uL (1.2-3.4) Monocytes # (Auto) 1.22 K/uL (0.11-0.59) Eosinophils # (Auto) 0.01 K/uL (0-0.5) Basophils # (Auto) 0.01 K/uL (0-0.2) Immature Granulocyte # (Auto) 0.05 K/uL (0.00-0.02) Total Bilirubin 0.5 mg/dl (0.2-1) Direct Bilirubin 0.2 mg/dl (0-0.2) Aspartate Amino Transf (AST/SGOT) 47 U/L (15-37) Alanine Aminotransferase (ALT/SGPT) 43 U/L (12-78) Alkaline Phosphatase 63 U/L (45-117) Total Protein 5.4 gm/dl (6.4-8.2) Albumin 2.7 gm/dl (3.4-5.0) Lipase 66 U/L (73-393) Test 06/10/17 07:08 06/10/17 12:00 Red Blood Count 2.88 M/uL (4.7-6.1) Mean Corpuscular Volume 93.1 fL (80-100) Mean Corpuscular Hemoglobin 30.2 pg (25-34) Mean Corpuscular Hemoglobin Concent 32.5 g/dl (32-36) RDW Standard Deviation 50.0 fL (36.4-46.3) RDW Coefficient of Variation 14.7 % (11.5-14.5) Mean Platelet Volume 10.0 fL (7.4-10.4) Prothrombin Time 11.9 SECONDS (9.0-12.0) Prothromb Time International Ratio 1.1 (0.9-1.1) Anion Gap 4.0 mmol/L (3-11) Est Creatinine Clear Calc Drug Dose 78.9 ml/min Estimated GFR () 93.4 Estimated GFR (Non- 80.6 BUN/Creatinine Ratio 27.2 (10-20) Calcium Level 8.3 mg/dl (8.5-10.1) Magnesium Level 1.9 mg/dl (1.8-2.4) Bedside Glucose 138 mg/dl (70-99) Last 24 Hours Test 06/09/17 17:08 06/09/17 20:54 06/10/17 07:08 06/10/17 08:00 Bedside Glucose 100 mg/dl 114 mg/dl 104 mg/dl White Blood Count 9.33 K/uL Red Blood Count 2.88 M/uL Hemoglobin 8.7 g/dL Hematocrit 26.8 % Mean Corpuscular Volume 93.1 fL Mean Corpuscular Hemoglobin 30.2 pg Mean Corpuscular Hemoglobin Concent 32.5 g/dl RDW Standard Deviation 50.0 fL RDW Coefficient of Variation 14.7 % Platelet Count 169 K/uL Mean Platelet Volume 10.0 fL Prothrombin Time 11.9 SECONDS Prothromb Time International Ratio 1.1 Sodium Level 140 mmol/L Potassium Level 3.8 mmol/L Chloride Level 108 mmol/L Carbon Dioxide Level 28 mmol/L Anion Gap 4.0 mmol/L Blood Urea Nitrogen 24 mg/dl Creatinine 0.88 mg/dl Est Creatinine Clear Calc Drug Dose 78.9 ml/min Estimated GFR () 93.4 Estimated GFR (Non- 80.6 BUN/Creatinine Ratio 27.2 Random Glucose 94 mg/dl Calcium Level 8.3 mg/dl Magnesium Level 1.9 mg/dl Test 06/10/17 12:00 Bedside Glucose 138 mg/dl Assessment & Plan S/P L2-S1 DECOMPRESSION - POD#4 - activity and wound care orders as per ortho - pain control with bowel regimen, currently on scheduled tylenol and tramadol prn-he has not had any narcotics or tramadol in the last 24 hours. - PT/OT - monitor H/H for acute blood loss anemia and transfuse blood products PRN- serosanguinous fluid coming through drain HYPOXIA: poss 2/2 volume overload with 5L IVF plus two units of blood during this hospitalization vs atelectasis. Pt denies SOB, coughing or fluid retention. Very clear lungs on exam today and per the nurse she was going to wean him to 2L today but then he was changing positions and requiring more during the transition. She will cont to attempt to wean. He has been diuresing well overnight since the Lasix was started. Will cont 20mg IV BID for now. Cont incentive spirometer. Added 2gm salt restriction to diet. NON ISCHEMIC CARDIOMYOPATHY-plan as above. Cont medical management with [facility]. No prior records are available. DIZZINESS: intermittent, persists mostly when patient is changing positions. Suspect orthostatic hypotension vs inner ear dysequilibrium. No stroke signs or symptoms and no neuro deficits on exam. Will obtain CT head as symptoms persist despite stopping all offending medications. Poss related to anemia, but H/H has not dropped significantly. Will obtain echo and interrogate pacemaker to be thorough. As pain is reported to be persistent and not much improved, this may also be playing a role. Pt now states that he was hallucinating earlier in the room. Might benefit from a trial of meclizine. He is asking for Aleve for his back pain-will discuss with Ortho. Cont to monitor. URINARY RETENTION: resolved. ANEMIA: post-op blood loss, s/p 2 Units of blood this admission. Currently stable. Drain set to be removed later today. Cont to monitor. V-TACH S/P AICD/PACER -asymptomatic -EKG revealed AV paced rhythm -continue Amiodarone DM A1C 5.5 on metformin as outpatient, well below goal for his age. Inpatient glucose levels are at goal. HTN - BP controlled, continue carvedilol at reduced dose HLD - continue statin BPH - continue finasteride -Hytrin held in light of dizziness DVT PROPHYLAXIS - TEDs/SCDs per ortho Thank you for this consultation. We will follow the patient with you during their hospital stay. You can reach a member of the [facility] Team 15/01 via pager @ . Carmen Flores DO [facility] ADDENDUM ([id number]): I checked on the patient and he feels much improved WRT lightheadedness and nausea after the meclizine and the Toradol given. Will continue with both. I spoke with the daughter and JODY who are at the bedside. They let me know that he uses CPAP. Caution was given regarding meclizine that use can cause urinary retention and delirium in elderly. Told this to patient, family and nurse. All verbalized understanding. Order was written for this for tonight. CT head normal today-gave results to patient and family. TTE completed with reading pending. PM interrogation pending. Discussed plan with Dr. Bird who is OK with Toradol for the time being. Holding on DVT prophylaxis for now. DO Mark Current Inpatient Medications: Current Inpatient Medications Medications (Trade) Dose Ordered Sig/Heydi Route Start Time Stop Time Status Last Admin Dose Admin Ondansetron HCl (Zofran Inj) 4 mg Q6H PRN IV 06/06/17 13:00 07/06/17 12:59 06/10/17 08:25 4 MG Pneumococcal Polysaccharide Vaccine 1 ea PRN PRN N/A 06/06/17 13:00 07/06/17 12:59 Influenza Virus Vacc Triv Types A&B 1 ea PRN PRN N/A 06/06/17 13:00 07/06/17 12:59 Bisacodyl (Dulcolax Supp) 10 mg DAILY PRN TX 06/06/17 13:00 07/06/17 12:59 Magnesium Hydroxide (Milk Of Magnesia Susp) 30 ml DAILY PRN PO 06/06/17 13:00 07/06/17 12:59 Hydromorphone HCl (Dilaudid Inj) 0.5-1mg prn moder... Q3H PRN IV 06/07/17 06:00 06/21/17 05:59 Oxycodone HCl (Roxicodone Immediate Rel Tab) 5-10mg prn moderate to sev... Q4H PRN PO 06/07/17 06:00 06/21/17 05:59 Future Hold 06/08/17 16:51 5 MG Naloxone HCl (Narcan Inj) 0.1 mg Q5M PRN IV 06/06/17 13:00 07/06/17 12:59 Senna/Docusate Sodium (Senokot S Tab) 2 tab HS PO 06/06/17 21:00 07/06/17 20:59 06/09/17 21:41 2 TAB Sodium Biphosphate/ Sodium Phosphate (Fleet Enema) 132 ml ONE PRN TX 06/06/17 13:00 07/06/17 12:59 Hydroxyzine HCl (Vistaril Tab) 25 mg Q8H PRN PO 06/06/17 13:00 07/06/17 12:59 Future Hold Al Hydroxide/Mg Hydroxide (Maalox Susp) 30 ml Q6H PRN PO 06/06/17 13:00 07/06/17 12:59 Famotidine (Pepcid Tab) 20 mg Q12 PRN PO 06/06/17 13:00 07/06/17 12:59 Diphenhydramine HCl (Benadryl Cap) 25 mg Q6H PRN PO 06/06/17 13:00 07/06/17 12:59 Future Hold Amiodarone HCl (Cordarone Tab) 200 mg BID PO 06/06/17 21:00 07/06/17 20:59 06/10/17 08:23 200 MG Aspirin (Ecotrin Tab) 81 mg QAM PO 06/07/17 09:00 07/07/17 08:59 06/10/17 08:23 81 MG Atorvastatin Calcium (Lipitor Tab) 40 mg QPM PO 06/06/17 21:00 07/06/17 20:59 06/09/17 21:40 40 MG Finasteride (Proscar Tab) 5 mg QPM PO 06/06/17 21:00 1/12/18 20:59 06/09/17 21:41 5 MG Insulin Aspart (novoLOG ASPART) SLIDING SCALE If C... ACHS SC 06/06/17 17:15 07/06/17 17:14 06/10/17 12:37 4 UNITS Glucose (Glucose 40% Gel) 15-30 GRAMS 15 GRAMS... UD PRN PO 06/06/17 15:45 07/06/17 15:44 Glucose (Glucose Chew Tab) 4-8 Tablets 4 Tabl... UD PRN PO 06/06/17 15:45 07/06/17 15:44 Dextrose (Dextrose 50% 50ML Syringe) 25-50ML OF 50% DW IV FOR... UD PRN IV 06/06/17 15:45 07/06/17 15:44 Glucagon (Glucagon Inj) 1 mg UD PRN SQ 06/06/17 15:45 07/06/17 15:44 Enteral Nutritional Formula (Boost Glucose Control) 1 can QAM PO 06/08/17 09:00 07/08/17 08:59 06/10/17 08:32 1 CAN Albuterol/ Ipratropium (Duoneb) 3 ml Q2H PRN INH 06/08/17 22:45 07/08/17 22:44 Carvedilol (Coreg Tab) 3.125 mg BID PO 06/09/17 09:00 07/06/17 20:59 06/10/17 08:24 3.125 MG Acetaminophen (Tylenol Tab) 1,000 mg Q8 PO 06/09/17 08:45 07/09/17 08:44 06/10/17 05:16 1,000 MG Tramadol HCl (Ultram Tab) 50 mg Q6H PRN PO 06/09/17 08:45 07/09/17 08:44 Furosemide 20 mg/ Syringe 2 ml @ 4 mls/min BID17 IV 06/09/17 17:00 07/09/17 16:59 06/10/17 08:23 4 MLS/MIN
--- NOTE | 2017-06-10 13:27 | DIAGNOSTIC IMAGING REPORT ---
HEAD WITHOUT CONTRAST (CT) CLINICAL HISTORY: 81 years-old Male presenting with persistent dizziness, no headache. TECHNIQUE: Multidetector CT imaging of the head was performed without the use of intravenous contrast. IV contrast: None. A dose lowering technique was used consistent with the principles of ALARA (as low as reasonably achievable). COMPARISON: None. CT DOSE (mGy.cm): The estimated cumulative dose is 537.48 mGy.cm. FINDINGS: Associate Professor Of Counseling topogram: Unremarkable. Proportional ventricular and sulcal prominence, likely age-related parenchymal volume loss. Brain parenchyma normal in appearance with preserved lyons-white differentiation. Senescent calcification noted in the globus pallidus. No mass effect or midline shift. No hemorrhage or acute territorial infarct. No extra-axial fluid collection. Paranasal sinuses and mastoid air cells clear. Calvarium intact. IMPRESSION: 1. No acute intracranial abnormality. Electronically signed by: Orville Ruvalcaba M.D. 06/10/2017 1:26 PM Dictated Date/Time: 06/10/2017 1:23 PM
[2017-06-10] MEDS ORDERED: KETOROLAC TROMETHAMINE 30 MG/ML VIAL IV ONE (15:27)
[2017-06-10] MEDS ORDERED: KETOROLAC TROMETHAMINE 30 MG/ML VIAL IV PRN (15:30)
[2017-06-10] MEDS: FINASTERIDE 5 MG TAB PO SCH (21:43)
[2017-06-10] MEDS: ATORVASTATIN 40 MG TAB PO SCH (21:43)
[2017-06-10] MEDS: DOCUSATE SODIUM/SENNA 50/8.6MG TAB PO SCH (21:43)
[2017-06-11] VITALS (7 sets, daily range): BP systolic 123–167; BP diastolic 63–74; PULSE 59–65; TEMP 36.9–37.1; O2SAT 92–94
[2017-06-11] MEDS: ACETAMINOPHEN 500 MG TAB PO SCH ×4 (05:20→21:51)
[2017-06-11 05:50] LABS: MEAN CELL VOLUME 93.3 fL (80-100); MEAN CORPUSCULAR HEMOGLOBIN 30.3 pg (25-34); MEAN CORPUSCULAR HGB CONC 32.5 g/dl (32-36); MEAN PLATELET VOLUME 9.6 fL (7.4-10.4); PLATELET COUNT 187 K/uL (130-400); WHITE BLOOD COUNT 8.99 K/uL (4.8-10.8)
[2017-06-11 06:29] LABS: BUN/CREATININE RATIO 19.7 (10-20); CALCIUM 8.2 mg/dl (8.5-10.1); CREATININE 1.12 mg/dl (0.60-1.40); MAGNESIUM 1.9 mg/dl (1.8-2.4); POTASSIUM 3.9 mmol/L (3.5-5.1)
[2017-06-11] MEDS: FUROSEMIDE INJ 20 MG in SYRINGE 0 ML IV SCH ×2 (08:04→17:26)
[2017-06-11] MEDS: ASPIRIN 81 MG ECTAB PO SCH (08:04)
[2017-06-11] MEDS: AMIODARONE 200 MG TAB PO SCH ×2 (08:04→21:32)
[2017-06-11] MEDS: BOOST GLUCOSE CONTROL PO SCH (08:04)
[2017-06-11] MEDS: CARVEDILOL 3.125 MG TAB PO SCH ×2 (08:05→21:51)
[2017-06-11] MEDS: INSULIN ASPART 100 UNITS/ML 3 ML PEN SC SCH ×4 (08:23→21:00)
--- NOTE | 2017-06-11 09:40 | ECHOCARDIOGRAM REPORT ---
*NOTICE TO RECEIVING LIBERTARIAN AGENCY This information is strictly Confidential and protected under [place] law. [place] law prohibits you from making any further disclosure of this information unless further disclosure is expressly permitted by the written consent of the person to whom it pertains or is authorized by law. A general authorization for the release of medical or other information is not sufficient for this purpose. Hospital accepts no responsibility if the information is made available to any other person, INCLUDING THE PATIENT. Interpretation Summary * Name: LIONEL PETERSON Study Date: 06/10/2017 01:55 PM BP: 113/57 mmHg * Patient Location: [id number].3E\S\E323\S\1 HR: 62 * : 1935 (M/d/yyyy) Gender: Male Height: 71 in * Age: 81 yrs Ethnicity: CA Weight: 218 lb * Ordering Physician: Carmen Flores * Referring Physician: Skinny Bird D.O. * Performed By: Deyanira Simmons RCS * * Reason For Study: H/O CARDIOMYOPATHY / RECENT FLUID OVERLOAD / PERSISTENT LIGHTHEADEDNESS * BSA: 2.2 m2 * -- Conclusions -- * Normal LV chamber size with moderate concentric LVH. * Normal LV systolic function, EF 55-60%. * No segmental left ventricular wall motion abnormalities are noted. * Grade I diastolic dysfunction. * No significant valvular pathology. * Small, circumferential pericardial effusion, more pronounced posteriorly. No hemodynamic compromise, no evidence to suggest tamponade. Procedure Details * A complete two-dimensional transthoracic echocardiogram was performed (2D, M-mode, Doppler and color flow Doppler). Left Ventricle * The left ventricle is normal in size. * There is moderate concentric left ventricular hypertrophy. * Left ventricular systolic function is normal. * No segmental left ventricular wall motion abnormalities are noted. * Ejection Fraction = 55-60%. * The left ventricular wall motion is normal. Right Ventricle * The right ventricular cavity size is normal (basal dimension <4.2 cm in right ventricular apical 4-chamber view). * The right ventricular systolic function is normal as assessed by tricuspid annular plane systolic excursion (TAPSE) (normal >1.5 cm). Atria * The left atrial size is normal. * Right atrial size is normal. * No ASD detected; PFO is not assessed. Mitral Valve * The mitral valve is normal in structure and function. Tricuspid Valve * The tricuspid valve is normal in structure and function. Aortic Valve * The aortic valve is not well visualized. * No hemodynamically significant valvular aortic stenosis. * There is no significant aortic regurgitation. Pulmonic Valve * The pulmonary valve is not well seen, but the Doppler examination is normal without significant regurgitation or stenosis. Great Vessels * The aortic root is normal size. Pericardium/Pleural * Small, circumferential pericardial effusion, more pronounced posteriorly. No hemodynamic compromise, no evidence to suggest tamponade. Left Ventricular Diastolic Function * Grade I diastolic dysfunction, (abnormal relaxation pattern). MMode 2D Measurements and Calculations IVSd 1.6 cm IVSs 1.7 cm LVIDd 5.3 cm LVIDs 3.9 cm LVPWd 1.5 cm LVPWs 1.5 cm IVS/LVPW 1.1 FS 26.2 % EDV(Teich) 132.9 ml ESV(Teich) 65.0 ml EF(Teich) 51.0 % EDV(cubed) 145.3 ml ESV(cubed) 58.3 ml EF(cubed) 59.9 % % IVS thick 2.8 % % LVPW thick -1.46 % LV mass(C)d 377.0 grams LV mass(C)dI 172.3 grams/m\S\2 LV mass(C)s 245.8 grams LV mass(C)sI 112.3 grams/m\S\2 SV(Teich) 67.8 ml SI(Teich) 31.0 ml/m\S\2 SV(cubed) 87.0 ml SI(cubed) 39.8 ml/m\S\2 Ao root diam 3.1 cm Ao root area 7.5 cm\S\2 LA dimension 3.6 cm LA/Ao 1.2 LVOT diam 1.9 cm LVOT area 2.8 cm\S\2 Doppler Measurements and Calculations MV E max jude 73.3 cm/sec MV A max jude 78.2 cm/sec MV E/A 0.94 MV P1/2t max jude 97.4 cm/sec MV P1/2t 106.9 msec MVA(P1/2t) 2.1 cm\S\2 MV dec slope 266.7 cm/sec\S\2 MV dec time 0.21 sec Ao V2 max 148.8 cm/sec Ao max PG 8.9 mmHg Ao max PG (full) 3.6 mmHg SAMMI(V,A) 2.1 cm\S\2 SAMMI(V,D) 2.1 cm\S\2 LV V1 max PG 5.2 mmHg LV V1 max 114.1 cm/sec MR max jude 488.3 cm/sec MR max PG 95.4 mmHg TR max jude 292.5 cm/sec
[2017-06-11] MEDS ORDERED: MECLIZINE HCL 25 MG TAB PO PRN (10:30)
[2017-06-11] MEDS ORDERED: MECLIZINE HCL 25 MG TAB PO ONE (10:45)
--- NOTE | 2017-06-11 13:24 | Progress Note ---
Progress Note Date of Service Jun 11, 2017. Progress Note Patient complaining of some back pain today. Denies any shortness of breath denies any leg pain. Certainly much improved from her status over the weekend. On exam vital signs are stable. He sitting in chair at bedside has good strength testing. Assessment status post multilevel lumbar decompression fusion. Plan at this time [facility]'ll [facility].
--- NOTE | 2017-06-11 18:08 | Progress Note ---
Medicine Progress Note Date & Time of Visit: Jun 11, 2017 at 10:31. Subjective still reports lightheadedness with movement tolerating PO but has some nausea denies CP, SOB weaned off O2 now ambulated to bathroom this morning with min assist. Objective Last 8 Hrs Date Time Temp Pulse Resp B/P (MAP) Pulse Ox O2 Delivery O2 Flow Rate FiO2 06/11/17 08:05 63 06/11/17 07:16 36.9 59 18 136/71 (92) 94 Nasal Cannula 2.0 06/11/17 07:10 Nasal Cannula 2.0 Physical Exam: GEN: obese, in no acute distress, alert and oriented HEENT: NC/AT, normal sclerae, MMM, pupils are equal and round, CARDIO: reg rate, S1/2 heard without m/g/r LUNGS: clear to auscultation bilaterally BACK: bandage in place over wound-c/d/i ABD: soft, non-tender, non-distended, no rebound or guarding, +BS EXTREMITY: RP and DP palpable 2+ bilat, no LE swelling or edema, extremities are warm and well-perfused. No edema in hands and feet. NEURO: CN 2-12 grossly intact, sensation intact throughout, finger to nose intact, speech and mentation intact MUSC: 5/5 strength throughout, moves all extremities equally. SKIN: warm and dry and wound as above. Laboratory Results: 06/11/17 05:13 06/11/17 05:13 Test 05/10/17 09:35 06/06/17 21:49 06/07/17 05:54 06/08/17 00:50 Urine Color YELLOW Urine Appearance CLEAR (CLEAR) Urine pH 8.5 (4.5-7.5) Urine Specific Bruce 1.021 (1.000-1.030) Urine Protein NEG (NEG) Urine Glucose (UA) NEG (NEG) Urine Ketones NEG (NEG) Urine Occult Blood NEG (NEG) Urine Nitrite NEG (NEG) Urine Bilirubin NEG (NEG) Urine Urobilinogen NEG (NEG) Urine Leukocyte Esterase NEG (NEG) Thyroid Stimulating Hormone (TSH) 1.810 uIu/ml (0.300-4.500) Estimated Average Glucose 111 mg/dl Hemoglobin A1c 5.5 % (4.5-5.6) Immature Granulocyte % (Auto) 0.4 % White Blood Count 13.18 K/uL (4.8-10.8) Red Blood Count 3.17 M/uL (4.7-6.1) Hemoglobin 9.5 g/dL (14.0-18.0) Hematocrit 29.1 % (42-52) Mean Corpuscular Volume 91.8 fL (80-100) Mean Corpuscular Hemoglobin 30.0 pg (25-34) Mean Corpuscular Hemoglobin Concent 32.6 g/dl (32-36) Platelet Count 171 K/uL (130-400) Mean Platelet Volume 9.9 fL (7.4-10.4) Neutrophils (%) (Auto) 84.8 % Lymphocytes (%) (Auto) 5.3 % Monocytes (%) (Auto) 9.3 % Eosinophils (%) (Auto) 0.1 % Basophils (%) (Auto) 0.1 % Neutrophils # (Auto) 11.19 K/uL (1.4-6.5) Lymphocytes # (Auto) 0.70 K/uL (1.2-3.4) Monocytes # (Auto) 1.22 K/uL (0.11-0.59) Eosinophils # (Auto) 0.01 K/uL (0-0.5) Basophils # (Auto) 0.01 K/uL (0-0.2) Immature Granulocyte # (Auto) 0.05 K/uL (0.00-0.02) Total Bilirubin 0.5 mg/dl (0.2-1) Direct Bilirubin 0.2 mg/dl (0-0.2) Aspartate Amino Transf (AST/SGOT) 47 U/L (15-37) Alanine Aminotransferase (ALT/SGPT) 43 U/L (12-78) Alkaline Phosphatase 63 U/L (45-117) Total Protein 5.4 gm/dl (6.4-8.2) Albumin 2.7 gm/dl (3.4-5.0) Lipase 66 U/L (73-393) Test 06/10/17 07:08 06/11/17 05:13 06/11/17 17:02 Prothrombin Time 11.9 SECONDS (9.0-12.0) Prothromb Time International Ratio 1.1 (0.9-1.1) Red Blood Count 3.00 M/uL (4.7-6.1) Mean Corpuscular Volume 93.3 fL (80-100) Mean Corpuscular Hemoglobin 30.3 pg (25-34) Mean Corpuscular Hemoglobin Concent 32.5 g/dl (32-36) RDW Standard Deviation 50.3 fL (36.4-46.3) RDW Coefficient of Variation 14.7 % (11.5-14.5) Mean Platelet Volume 9.6 fL (7.4-10.4) Anion Gap 2.0 mmol/L (3-11) Est Creatinine Clear Calc Drug Dose 62.0 ml/min Estimated GFR () 71.0 Estimated GFR (Non- 61.3 BUN/Creatinine Ratio 19.7 (10-20) Calcium Level 8.2 mg/dl (8.5-10.1) Magnesium Level 1.9 mg/dl (1.8-2.4) Bedside Glucose 127 mg/dl (70-99) Last 24 Hours Test 06/10/17 12:00 06/10/17 17:15 06/10/17 20:43 06/11/17 05:13 Bedside Glucose 138 mg/dl 124 mg/dl 134 mg/dl White Blood Count 8.99 K/uL Red Blood Count 3.00 M/uL Hemoglobin 9.1 g/dL Hematocrit 28.0 % Mean Corpuscular Volume 93.3 fL Mean Corpuscular Hemoglobin 30.3 pg Mean Corpuscular Hemoglobin Concent 32.5 g/dl RDW Standard Deviation 50.3 fL RDW Coefficient of Variation 14.7 % Platelet Count 187 K/uL Mean Platelet Volume 9.6 fL Sodium Level 140 mmol/L Potassium Level 3.9 mmol/L Chloride Level 105 mmol/L Carbon Dioxide Level 32 mmol/L Anion Gap 2.0 mmol/L Blood Urea Nitrogen 22 mg/dl Creatinine 1.12 mg/dl Est Creatinine Clear Calc Drug Dose 62.0 ml/min Estimated GFR () 71.0 Estimated GFR (Non- 61.3 BUN/Creatinine Ratio 19.7 Random Glucose 90 mg/dl Calcium Level 8.2 mg/dl Magnesium Level 1.9 mg/dl Test 06/11/17 07:51 Bedside Glucose 97 mg/dl Assessment & Plan S/P L2-S1 DECOMPRESSION - POD#5 - activity and wound care orders as per ortho-improved PT today (ambulated 16 feet) - pain control with bowel regimen, currently on scheduled tylenol and tramadol prn to minimize narcotic use which may add to lightheadedness. Tramadol PRN authorized by Dr. Bird. - PT/OT daily. - monitor H/H for acute blood loss anemia and transfuse blood products PRN-no acute indication at this time. HYPOXIA: poss 2/2 volume overload with 5L IVF plus two units of blood during this hospitalization vs atelectasis. Resolved-now on room air. Cont incentive spirometer. Added 2gm salt restriction to diet. Will change Lasix back to PO home dose starting in am. NON ISCHEMIC CARDIOMYOPATHY-plan as above. Cont medical management with Coreg. Pt is compensated at this time. Normal echo WRT pump function, however, there is a small pericardial effusion present that will need to be followed. In addition, his pacemaker was interrogated yesterday with results showing fluid overloaded state since January. Would recommend that he follow-up with Cardiology as outpatient for consideration of diuretic adjustment and monitoring of effusion. Restarting metolazone now. DIZZINESS: intermittent, persists mostly when patient is changing positions. Suspect orthostatic hypotension vs inner ear dysequilibrium. Pt has a h/o vertigo in the past. No stroke signs or symptoms and no neuro deficits on exam. CT head is normal. Stopped all offending medications with no relief. Meclizine is helping him. Could not perform provocative head movements because of pain and limited ROM with recent back surgery. Poss related to anemia, but H/ H has not dropped significantly. TTE with normal EF and small pericardial effusion without signs of tamponade. PM interrogation reveals no arrythmias but fluid overloaded state since January. Pt also told he will need a battery change in 3 months. Cont Meclizine and pain control efforts. Exercise tolerance appears to be improving. URINARY RETENTION: resolved. ANEMIA: post-op blood loss, s/p 2 Units of blood this admission. Currently stable. Drain removed yesterday. Cont to monitor. V-TACH S/P AICD/PACER -asymptomatic -EKG revealed AV paced rhythm -continue Amiodarone DM A1C 5.5 on metformin as outpatient, well below goal for his age. Inpatient glucose levels are at goal. HTN - BP controlled, continue carvedilol at reduced dose HLD - continue statin BPH - continue finasteride -Hytrin held in light of dizziness DVT PROPHYLAXIS - TEDs/SCDs per ortho Thank you for this consultation. We will follow the patient with you during their hospital stay. You can reach a member of the [facility] Hospitalist Team 15/01 via pager @ . Carmen Flores DO [facility] Hospitalist Current Inpatient Medications: Current Inpatient Medications Medications (Trade) Dose Ordered Sig/Heydi Route Start Time Stop Time Status Last Admin Dose Admin Ondansetron HCl (Zofran Inj) 4 mg Q6H PRN IV 06/06/17 13:00 07/06/17 12:59 06/10/17 08:25 4 MG Pneumococcal Polysaccharide Vaccine 1 ea PRN PRN N/A 06/06/17 13:00 07/06/17 12:59 Influenza Virus Vacc Triv Types A&B 1 ea PRN PRN N/A 06/06/17 13:00 07/06/17 12:59 Bisacodyl (Dulcolax Supp) 10 mg DAILY PRN MO 06/06/17 13:00 07/06/17 12:59 Magnesium Hydroxide (Milk Of Magnesia Susp) 30 ml DAILY PRN PO 06/06/17 13:00 07/06/17 12:59 Hydromorphone HCl (Dilaudid Inj) 0.5-1mg prn moder... Q3H PRN IV 06/07/17 06:00 06/21/17 05:59 Oxycodone HCl (Roxicodone Immediate Rel Tab) 5-10mg prn moderate to sev... Q4H PRN PO 06/07/17 06:00 06/21/17 05:59 Future Hold 06/08/17 16:51 5 MG Naloxone HCl (Narcan Inj) 0.1 mg Q5M PRN IV 06/06/17 13:00 07/06/17 12:59 Senna/Docusate Sodium (Senokot S Tab) 2 tab HS PO 06/06/17 21:00 07/06/17 20:59 06/10/17 21:43 2 TAB Sodium Biphosphate/ Sodium Phosphate (Fleet Enema) 132 ml ONE PRN MO 06/06/17 13:00 07/06/17 12:59 Hydroxyzine HCl (Vistaril Tab) 25 mg Q8H PRN PO 06/06/17 13:00 07/06/17 12:59 Future Hold Al Hydroxide/Mg Hydroxide (Maalox Susp) 30 ml Q6H PRN PO 06/06/17 13:00 07/06/17 12:59 Famotidine (Pepcid Tab) 20 mg Q12 PRN PO 06/06/17 13:00 07/06/17 12:59 Diphenhydramine HCl (Benadryl Cap) 25 mg Q6H PRN PO 06/06/17 13:00 07/06/17 12:59 Future Hold Amiodarone HCl (Cordarone Tab) 200 mg BID PO 06/06/17 21:00 07/06/17 20:59 06/11/17 08:04 200 MG Aspirin (Ecotrin Tab) 81 mg QAM PO 06/07/17 09:00 07/07/17 08:59 06/11/17 08:04 81 MG Atorvastatin Calcium (Lipitor Tab) 40 mg QPM PO 06/06/17 21:00 07/06/17 20:59 06/10/17 21:43 40 MG Finasteride (Proscar Tab) 5 mg QPM PO 06/06/17 21:00 07/06/17 20:59 06/10/17 21:43 5 MG Insulin Aspart (novoLOG ASPART) SLIDING SCALE If C... ACHS SC 06/06/17 17:15 07/06/17 17:14 06/11/17 08:23 8 UNITS Glucose (Glucose 40% Gel) 15-30 GRAMS 15 GRAMS... UD PRN PO 06/06/17 15:45 07/06/17 15:44 Glucose (Glucose Chew Tab) 4-8 Tablets 4 Tabl... UD PRN PO 06/06/17 15:45 07/06/17 15:44 Dextrose (Dextrose 50% 50ML Syringe) 25-50ML OF 50% DW IV FOR... UD PRN IV 06/06/17 15:45 07/06/17 15:44 Glucagon (Glucagon Inj) 1 mg UD PRN SQ 06/06/17 15:45 07/06/17 15:44 Enteral Nutritional Formula (Boost Glucose Control) 1 can QAM PO 06/08/17 09:00 07/08/17 08:59 06/11/17 08:04 1 CAN Albuterol/ Ipratropium (Duoneb) 3 ml Q2H PRN INH 06/08/17 22:45 07/08/17 22:44 Carvedilol (Coreg Tab) 3.125 mg BID PO 06/09/17 09:00 07/06/17 20:59 06/11/17 08:05 3.125 MG Acetaminophen (Tylenol Tab) 1,000 mg Q8 PO 06/09/17 08:45 07/09/17 08:44 06/10/17 21:43 1,000 MG Tramadol HCl (Ultram Tab) 50 mg Q6H PRN PO 06/09/17 08:45 07/09/17 08:44 06/11/17 10:26 50 MG Furosemide 20 mg/ Syringe 2 ml @ 4 mls/min BID17 IV 06/09/17 17:00 07/09/17 16:59 06/11/17 08:04 4 MLS/MIN Ketorolac Tromethamine (Toradol Inj) 15 mg Q6H PRN IV 06/10/17 15:30 06/15/17 15:29
[2017-06-11] MEDS: DOCUSATE SODIUM/SENNA 50/8.6MG TAB PO SCH (21:32)
[2017-06-11] MEDS: FINASTERIDE 5 MG TAB PO SCH (21:32)
[2017-06-11] MEDS: ATORVASTATIN 40 MG TAB PO SCH (21:32)
[2017-06-12] MEDS: ACETAMINOPHEN 500 MG TAB PO SCH ×3 (06:01→21:39)
[2017-06-12 07:30] VITALS: O2SAT 93
[2017-06-12 07:41] VITALS: BP 146/68; PULSE 62; TEMP 36.4; O2SAT 93
[2017-06-12] MEDS: AMIODARONE 200 MG TAB PO SCH ×2 (09:00→21:10)
[2017-06-12] MEDS: FUROSEMIDE 20 MG TAB PO SCH ×2 (09:00→18:00)
[2017-06-12] MEDS: CARVEDILOL 3.125 MG TAB PO SCH ×2 (09:01→21:10)
[2017-06-12] MEDS: ASPIRIN 81 MG ECTAB PO SCH (09:01)
[2017-06-12] MEDS: INSULIN ASPART 100 UNITS/ML 3 ML PEN SC SCH ×4 (09:03→21:20)
[2017-06-12] MEDS: BOOST GLUCOSE CONTROL PO SCH (09:04)
[2017-06-12 11:22] LABS: CALCIUM 8.3 mg/dl (8.5-10.1); CREATININE 1.06 mg/dl (0.60-1.40); POTASSIUM 3.5 mmol/L (3.5-5.1)
--- NOTE | 2017-06-12 12:37 | Progress Note ---
Progress Note Date of Service Jun 12, 2017. Progress Note Patient is steadily improving. He walked a with physical therapy. He tolerated this well. Vital signs are stable. On exam he is sitting in chair at the bedside. He demonstrates good strength testing. Assessment status post multilevel lumbar decompression fusion plan at this time we will just DC to [facility] tomorrow.
[2017-06-12 15:50] VITALS: BP 117/59; PULSE 71; TEMP 37.2; O2SAT 94
[2017-06-12 21:06] VITALS: BP 138/71; PULSE 60
[2017-06-12] MEDS: DOCUSATE SODIUM/SENNA 50/8.6MG TAB PO SCH (21:10)
[2017-06-12] MEDS: FINASTERIDE 5 MG TAB PO SCH (21:10)
[2017-06-12] MEDS: ATORVASTATIN 40 MG TAB PO SCH (21:10)
[2017-06-12 23:15] VITALS: BP 152/73; PULSE 60; TEMP 37; O2SAT 93
[2017-06-13] VITALS (7 sets, daily range): BP systolic 108–138; BP diastolic 61–67; PULSE 60–63; TEMP 36.8–37.2; O2SAT 88–97
[2017-06-13] MEDS: ACETAMINOPHEN 500 MG TAB PO SCH ×2 (05:58→13:17)
[2017-06-13] MEDS ORDERED: METOLAZONE 5 MG TAB PO SCH (08:30)
[2017-06-13] MEDS: BOOST GLUCOSE CONTROL PO SCH (09:00)
[2017-06-13] MEDS: INSULIN ASPART 100 UNITS/ML 3 ML PEN SC SCH ×3 (09:18→18:00)
[2017-06-13] MEDS: CARVEDILOL 3.125 MG TAB PO SCH (09:20)
[2017-06-13] MEDS: FUROSEMIDE 20 MG TAB PO SCH ×2 (09:20→16:57)
[2017-06-13] MEDS: AMIODARONE 200 MG TAB PO SCH (09:21)
[2017-06-13] MEDS: ASPIRIN 81 MG ECTAB PO SCH (09:22)
--- NOTE | 2017-06-13 14:35 | DIAGNOSTIC IMAGING REPORT ---
CHEST ONE VIEW PORTABLE CLINICAL HISTORY: congestion COMPARISON STUDY: 06/08/2017 FINDINGS: The heart remains enlarged. There is a left subclavian pacer/defibrillator present. There is mild pulmonary vascular congestion. Left basilar opacities are likely atelectatic. There is no lobar consolidation.[ IMPRESSION: Cardiomegaly and mild pulmonary vascular congestion. Left basilar opacities, likely atelectatic. Electronically signed by: Crescencio Sutton M.D. 06/13/2017 2:34 PM Dictated Date/Time: 06/13/2017 2:33 PM
--- NOTE | 2017-06-13 16:19 | Discharge Summary ---
Orthopedic Discharge Summary Admission Date/Reason Jun 06, 2017 at 07:30 Lumbar Spinal Stenosis. Discharge Date/Disposition Jun 13, 2017 Home Diagnosis Principal Diagnosis: Spinal stenosis Admission Physical Exam As per Admitting History & Physical. Hospital Course Patient underwent multilevel lumbar decompression tolerated as well as taken to the orthopedic floor postop we. He did require postoperative blood transfusions and progressed slowly but on a daily basis improved his function. Subsequently he was discharged to a nursing facility. Discharge orders and instructions can be found the chart for further review. Discharge Instructions Please refer to the electronic Patient Visit Report (Discharge Instructions) for additional information.
== END 2017-06-13 19:10 | DRG 454 ==
LOC: C.ACU 06:52 → C.3E 07:30 → ENRESERV 14:01
PROVIDERS: ADMIT Orthopaedic Surgery Orthopaedic Surgery of the Spine; ATTEND Orthopaedic Surgery Orthopaedic Surgery of the Spine
PROC: 0ST40ZZ Resection of Lumbosacral Disc, Open Approach (ICD-10-PCS; principal; 2017-06-06 08:55)
PROC: 0SG804Z Fusion of Left Sacroiliac Joint with Internal Fixation Device, Open Approach (ICD-10-PCS; principal; 2017-06-06 08:55)
PROC: 0SG704Z Fusion of Right Sacroiliac Joint with Internal Fixation Device, Open Approach (ICD-10-PCS; principal; 2017-06-06 08:55)
PROC: 0SG3071 Fusion of Lumbosacral Joint with Autologous Tissue Substitute, Posterior Approach, Posterior Column, Open Approach (ICD-10-PCS; principal; 2017-06-06 08:55)
PROC: 0SG1071 Fusion of 2 or more Lumbar Vertebral Joints with Autologous Tissue Substitute, Posterior Approach, Posterior Column, Open Approach (ICD-10-PCS; principal; 2017-06-06 08:55)
PROC: 0SG30AJ Fusion of Lumbosacral Joint with Interbody Fusion Device, Posterior Approach, Anterior Column, Open Approach (ICD-10-PCS; principal; 2017-06-06 08:55)
DX: M48.061 Spinal stenosis, lumbar region without neurogenic claudication (principal); D62 Acute posthemorrhagic anemia; I25.5 Ischemic cardiomyopathy; R09.02 Hypoxemia; E87.70 Fluid overload, unspecified; Z79.82 Long term (current) use of aspirin; N40.1 Benign prostatic hyperplasia with lower urinary tract symptoms; Z95.810 Presence of automatic (implantable) cardiac defibrillator; E11.9 Type 2 diabetes mellitus without complications; Z96.642 Presence of left artificial hip joint; R33.9 Retention of urine, unspecified; Z88.2 Allergy status to sulfonamides; Z79.84 Long term (current) use of oral hypoglycemic drugs